=== PATIENT | male | born 1940 | race Caucasian/White ===

== ENCOUNTER 2017-08-12 12:35 | Inpatient (IN) | payer MEDICARE, OTHER ==
[2017-08-12 12:49] VITALS: BP 138/72
[2017-08-12] MEDS ORDERED: Magnesium Hydroxide (MOM) 30 mL UDC PO PRN (17:09)
[2017-08-12] MEDS ORDERED: Maalox 30 mL Cup PO PRN (17:09)
[2017-08-13] MEDS: Multivitamin Tab PO SCH (08:24)
[2017-08-13 10:14] LABS: ALB/GLOB RATIO 1.3 (1.0-1.8); ALKALINE PHOSPHATASE 75 U/L (34-104); ANION GAP 7.3 (7.0-16.0); BILIRUBIN,TOTAL 0.4 mg/dL (0.3-1.0); BUN - UREA NITROGEN 23 mg/dL (7-25); CALCIUM SERUM 9.3 mg/dL (8.6-10.3); CARBON DIOXIDE 26.7 mEq/L (21.0-31.0); CHLORIDE 105 mEq/L (98-107); CREATININE - SERUM 1.1 mg/dL (0.7-1.3); GLUCOSE 78 mg/dL (70-105); SGOT 17 U/L (13-39); SGPT/ALT 12 U/L (7-52); SODIUM SERUM 135 mEq/L (136-145)
--- NOTE | 2017-08-13 10:47 | History & Physical ---
ADMIT DATE: PATIENT IDENTIFICATION: A 76-year-old male. REQUESTING PHYSICIAN: Dr. Cara Hernandez. REASON: Medical management. CHIEF COMPLAINT: "I am fine sir." HISTORY OF PRESENT ILLNESS: A 76-year-old male admitted at [facility] for psychiatric treatment. When he presented initially to [facility] for disorganized thought and he was placed on hold. The patient is overall a poor historian and could not provide any meaningful history. History is obtained from reviewing the chart from [facility]. PAST MEDICAL HISTORY: Remarkable for melanoma removal on his right forearm along with hernia repair and osteoarthritis. MEDICATIONS: Currently, he is taking, which has been reviewed and reconciled appropriately. ALLERGIES: The patient is not allergic to medication. SOCIAL HISTORY: According to him, he is not from [place]. On reviewing the chart, he lives in a [facility]. The patient has a remote history of marijuana use, but denies any smoking cigarette or using alcohol. FAMILY MEDICAL HISTORY: Unremarkable. REVIEW OF SYSTEMS: The patient denies any headache, blurred vision, double vision, dysphagia, odynophagia, runny nose, stuffy nose, fever, chills, cough, chest pain, shortness of breath, palpitation, dizziness, nausea, vomiting, diarrhea, dysuria, hematuria, hematochezia, or melena. No history of any seizure or syncopal episode. No weight loss or weight gain. No history of tingling, numbness. PHYSICAL EXAMINATION: GENERAL: The patient is alert, awake, and oriented, lying in the bed. VITAL SIGNS: Temperature 98, pulse is 64, respiratory rate 18, and blood pressure 132/70. HEENT: Normocephalic and atraumatic. Extraocular muscles are intact. Tongue was pink and coated. Poor dentition noted. No oral lesion, no exudate. No sinus tenderness. External auditory canal and tympanic membranes are well visualized. NECK: Supple. No JVD. No hepatojugular reflex. No lymphadenopathy, thyromegaly, or carotid bruit. HEART: Both heart sounds are regular. No S3, no S4, no murmur. CHEST AND LUNGS: Equal in expansion. No wheezing, no crackles. ABDOMEN: Soft. No guarding, no rigidity. Liver and spleen palpable. No palpable mass. EXTREMITIES: No edema, no cyanosis. There is a well healed surgical scar for removal of melanoma on right forearm noted. NEUROLOGIC: Alert and awake. Follows commands. A 2-12 cranial nerves are intact. Power in upper and lower extremities 5+. Sensation to touch intact. Babinski's in both toes are going down. No cerebellar sign. RECTAL: External genital examination not done as the patient request. AVAILABLE DIAGNOSTIC DATA: White count of 8.53, hemoglobin 13.6, and platelet count of 218. Urinalysis is negative. Urine drug screen is unremarkable. Chemistry panels are within normal limit, which include AST, ALT is 18 and 15 respectively. Sodium 142, potassium 4.0, chloride 104, CO2 25, BUN and creatinine 27 and 1.1. Magnesium of 0.9. Depakote level was reported 14. CLINICAL IMPRESSION: 1. Most likely psychotic disorder exacerbation. 2. Most likely underlying dementia, most probably Alzheimer's type. 3. Degenerative joint disease. 4. History of melanoma, status post resection. 5. Social issues, needs placement. PLAN: 1. Psychiatric evaluation and management deferred to psychiatrist. 2. Dementia workup. 3. Provide general nursing care, fall precautions, nutritional support as well as we will continue to follow this patient during his stay at the hospital. I sincerely thank you, Dr. Cara Hernandez for giving me opportunity to participate in patient of yours. [facility]# [id number]
--- NOTE | 2017-08-13 11:06 | Psychosocial Evaluation ---
DATE OF SERVICE: PSYCHIATRIC INITIAL EVALUATION AND MENTAL STATUS EXAM PATIENT'S AGE: 76. SEX: Male. PHYSICIAN: Cara Hernandez M.D., M.P.H. CHIEF COMPLAINT: "They dragged me here." HISTORY OF PRESENT ILLNESS: The patient is a 76-year-old male who was placed on a 5150 hold written by [facility]. Apparently, the patient has been confused and has been forgetful and he is homeless, in [facility]. Chart reviewed and patient interviewed and discussed the patient's condition with the staff and reviewed records and labs. "I am 55 years old" while the patient is a 76-year-old, also did not know where he lives or how he will buy food or where he gets his money. According to the hold it seems that the patient was living in his car, but also he has not been able to handle food or detention on his own. He also was confused and he was not able to tell me much about himself or about last time he ate or what happened prior to his admission. 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 He did not remember exactly when did he retire and it looks like dates are not clear to him and forgetful in regard to the dates. Also said that he is single, never and that he has no children. The patient seemed that he was agitated in the Emergency Department in [facility]. PAST PSYCHIATRIC HISTORY: The patient cannot tell. PAST MEDICAL HISTORY: The patient has hernia that looks like inguinal hernia. The patient also has history of skin cancer in the right forearm that was removed and the graft is visible. FAMILY PSYCHIATRIC HISTORY: The patient denies. CHEMICAL DEPENDENCY HISTORY: The patient denies. SOCIAL HISTORY: The patient is currently homeless. He is retired. He denies any legal issues or abuse issues. He has never and no children and no family that he can identify. ALLERGIES: No known allergies. MENTAL STATUS EXAMINATION: The patient appears his stated age. Cooperative. Thought processes are circumstantial, but no flight of ideas. The patient denies any auditory or visual hallucinations, but seems to be paranoid and delusional. The patient denies any thoughts of suicide or homicide. The patient is alert and oriented to the situation, but not to date or person or place. Intact remote memory but impaired immediate and recent memories. Poor insight and he does not know what is wrong with him. Poor judgment and he was living in the streets and was not able to supply any safe environment for himself. He seems to be of average intelligence based on his verbal ability. ASSESSMENT: PRIMARY DIAGNOSIS: Unspecified psychosis. SECONDARY DIAGNOSIS: Dementia, moderate to severe, with psychotic features. MEDICAL DIAGNOSIS: Hernia. TREATMENT PLAN: We will monitor the patient's behavior and condition closely. The patient started on Risperdal and we will monitor the dose. Also we will work on safe discharge plans. ESTIMATED LENGTH OF STAY: 5-7 days. THE PATIENT'S STRENGTHS AND WEAKNESSES: The patient's strength is not clear at this time. Weakness is ineffective coping and inability to care for self. AFTER DISCHARGE PLAN: Outpatient treatment and followup will continue as an outpatient. CRITERIA FOR DISCHARGE: The patient will not be psychotic or agitated and will stabilize psychotropic medications and will establish outpatient treatment plans. [facility]# [id number]
--- NOTE | 2017-08-14 06:40 | Progress Notes ---
DATE: SUBJECTIVE: Chart reviewed and the patient interviewed. I also discussed the patient's condition with the staff and reviewed records and labs. The patient is still agitated and restless. The patient also is confused and forgetful. The patient also insists when talking to staff that his parents are alive and that he wants to call his parents. The patient also is still restless and is still actively talking to himself. Otherwise, the patient is compliant with taking his medications with no side effects of Risperdal. ASSESSMENT: The patient is still confused and is still agitated. TREATMENT PLAN: We will continue to monitor his behavior and his condition closely. Also, continue to work on his irritability and his impulse control and we will continue to follow up. JOB# [id number]
[2017-08-14] MEDS: Multivitamin Tab PO SCH (09:54)
[2017-08-14 14:16] LABS: RA RHEUMATOID FACTOR <10.0 IU/mL (0.0-13.9)
[2017-08-15] MEDS: Multivitamin Tab PO SCH (09:01)
[2017-08-15 16:18] LABS: ANTI-NUCLEAR AB SCREEN Negative
--- NOTE | 2017-08-16 02:32 | Progress Notes ---
DATE: Chart reviewed and the patient interviewed. Also discussed the patient's condition with the staff and reviewed records and labs. The patient is confused. The patient also is talking about his parents and he also continued to talk about his art and thinking that he has art inside the hospital. Also, has been disorganized and forgetful. The patient also complaining of insomnia. The patient also was saying that he has "water ski" that is somewhere close by the hospital. Otherwise, the patient is compliant with taking Risperdal with no side effects. ASSESSMENT: The patient is still psychotic. TREATMENT PLAN: Continue to monitor his behavior and his condition closely and continue to work on behavioral modification and also on discharge plans and placement issue. JOB# [id number]
[2017-08-16] MEDS: Multivitamin Tab PO SCH (09:09)
--- NOTE | 2017-08-16 21:06 | Progress Notes ---
DATE: 08/16/2017 SUBJECTIVE: Chart reviewed and the patient interviewed. Also discussed the patient's condition with the staff and reviewed records and labs. The patient continued to be confused and delusional. The patient continued to talk about his family in a confused state and thinks that there are still alive and want to call them. The patient also is still suspicious and paranoid and has episodes of anger and irritability. Otherwise, the patient is compliant with taking his medications with no side effect of medications. ASSESSMENT: The patient is still psychotic. TREATMENT PLAN: Continue to monitor his behavior and his condition closely. Also, we will increase Risperdal to 1 mg twice a day and we will continue to follow up. [facility]# [id number]
[2017-08-17] MEDS: Multivitamin Tab PO SCH (08:25)
--- NOTE | 2017-08-17 13:21 | Progress Notes ---
DATE: 08/17/2017 SUBJECTIVE: The patient seen and examined. The patient sitting in the chair. The patient remained pleasantly demented. Denies any chest pain, short of breath, palpitation, dizziness, nausea, vomiting. PHYSICAL EXAMINATION: VITAL SIGNS: Temperature 98, pulse is 64, respiratory rate 18, blood pressure 134/78. HEENT: No facial asymmetry. NECK: Supple, no JVD. HEART: Regular, no murmur. CHEST: Lung equal in expansion. No wheezing, no crackles. ABDOMEN: Soft. No guarding, no rigidity. EXTREMITIES: No edema. NEUROLOGIC: Alert, awake, follows commands. CLINICAL IMPRESSION: 1. Psychotic disorder exacerbation. 2. Most likely Alzheimer's type dementia. 3. Degenerative joint disease. 4. Needs placement. Lab performed in 08/13/2017 has been reviewed. IMPRESSION: 1. Psychotic disorder exacerbation. 2. Alzheimer dementia. PLAN: Continue current medication as patient receiving for his symptoms management and psychotic disorder. We will follow this patient during the stay on as needed basis. JOB# [id number]
[2017-08-18] MEDS: Multivitamin Tab PO SCH (10:11)
--- NOTE | 2017-08-18 19:36 | Progress Notes ---
DATE: 08/17/2017 SUBJECTIVE: The patient was seen and evaluated. The patient's chart reviewed. This is Dr. Lyons covering for Dr. Hernandez. He is a 76-year-old male, who was placed on 5150 by [facility]. The patient has been disorganized, confused, ____, he is homeless, in [place]; reporting that he was 55 years old when he first came in and not much information was given, he was clearly disorganized. As early as yesterday, the patient continued to be disorganized, delusional, talking about his family in a confused state, not giving much information. Today, on [id number] evaluation, the patient is disorganized, easily derails, cannot give much information, coherent conversation and refusing to be interviewed in a coherent manner. MENTAL STATUS EXAMINATION: Disorganized, delusional. ASSESSMENT AND PLAN: The patient continues to be disorganized. We will continue with the recent increase of risperidone 1 mg p.o. b.i.d. to target the patient residual disorganized thought process and also continue with his lorazepam as needed, MOM, multivitamins, and Ambien as needed. JOB# [id number]
--- NOTE | 2017-08-19 09:12 | Progress Notes ---
DATE: 08/18/2017 SUBJECTIVE: The patient was seen and evaluated. The patient's chart reviewed. This is Dr. Lyons covering for Dr. Hernandez. Today on [id number] evaluation, the patient believes that he is entitled to a big inheritance and believes that his family is , but does not give much information beyond that. MENTAL STATUS EXAMINATION: Still suspicious, paranoid. ASSESSMENT AND PLAN: The patient continues to perseverate about receiving inheritance. Recent increase of risperidone has been tolerated. We will continue with the current medication regimen and continue monitoring further need for increasing risperidone. JOB# [id number]
[2017-08-19] MEDS: Multivitamin Tab PO SCH (09:22)
--- NOTE | 2017-08-19 17:46 | Progress Notes ---
DATE: 08/19/2017 SUBJECTIVE: The patient is seen and examined in the Geropsych Unit. The patient sitting in the chair, does not provide any meaningful history at this time. Discussed with nursing staff about his overall progress. PHYSICAL EXAMINATION: VITAL SIGNS: Temperature is 98.4, pulse is 94, respiratory 18, blood pressure 137/82. HEENT: No facial asymmetry. NECK: Supple, no JVD, no lymphadenopathy, thyromegaly. HEART: Both heart sounds are regular. CHEST: Lung equal in expansion, no wheezing, no crackles. ABDOMEN: Soft, no guarding, no rigidity. Liver, spleen not palpable mass. EXTREMITIES: No edema. CLINICAL IMPRESSION: 1. Alzheimer dementia. 2. Degenerative joint disease. 3. Psychotic disorder exacerbation. 4. Fall risk. PLAN: 1. Psychiatric evaluation and management deferred to psychiatrist. 2. Symptoms management. 3. Medication management. 4. General nursing care. 5. Fall precaution. 6. Follow lab. 7. We will follow this patient on an as needed basis. JOB# [id number]
--- NOTE | 2017-08-19 20:53 | Progress Notes ---
DATE: 08/19/[address] Hernandez. Case was discussed with staff of the patient and reviewed records. This is a 76-year-old male who was admitted on 08/12/2017. The patient reports that they dragged him here. He was put on a hold by [facility]. The patient has been confused, has been forgetful, homeless in [facility]. The patient believed he was 55 years of age, unable to tell his age. The patient does not know where he is. He was living in his car. 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 He is demented, confused. The patient has been in a way calmer. The patient needs to be placed in a safe environment. Dr. Hernandez have him on Risperdal that was increased on 08/16/2017 to 1 mg twice a day. The staff reports, he is in general calming, responding well to redirection, working on placement. No side effects with the medication. No sedation, no nausea, no extrapyramidal symptoms. We will continue outpatient group therapy, milieu therapy, adjust medications as needed. JOB# [id number]
[2017-08-20] MEDS: Multivitamin Tab PO SCH (09:43)
[2017-08-21] MEDS: Multivitamin Tab PO SCH (08:50)
--- NOTE | 2017-08-21 22:02 | Progress Notes ---
DATE: PSYCHIATRIC PROGRESS NOTE Chart reviewed and the patient interviewed. Also discussed the patient's condition with the staff and reviewed records and labs. The patient continued to be restless and is still confused. The patient also still has episodes of agitation, but less than before. Also slightly easier to redirect him. He is still delusional when talking about his family. Also, the patient is still unkempt and personal hygiene is still fluctuating from fair to poor. The patient continued to take his psychotropic medications with no side effects of medications. ASSESSMENT: The patient is still confused and psychotic, but less agitated. TREATMENT PLAN: Continue to monitor his behavior and his condition closely. Also, continue to work on discharge plans and discussed with mattress spring encaser possibility of placing the patient on [facility] and will continue to follow up. JOB# [id number]
[2017-08-22] MEDS: Multivitamin Tab PO SCH (08:03)
[2017-08-23] MEDS: Multivitamin Tab PO SCH (09:03)
[2017-08-24] MEDS: Multivitamin Tab PO SCH (09:21)
--- NOTE | 2017-08-24 23:47 | Progress Notes ---
DATE: 08/24/2017 SUBJECTIVE: A 76-year-old male placed on a hold from an Emergency Room. He has been confused, forgetful, noted to be homeless. The patient was confused, disoriented, did not know how he was going to fend for himself or provide for basic food, clothing, and correction. Dr. Hernandez has been seeing the patient over the past few days noting that he continued to be restless, confused, disoriented, still agitated fluctuations and hygiene. Sleeping fairly well, eating fairly well with prompting. ASSESSMENT: The patient remains confused, still somewhat disoriented, highly impulsive and unpredictable, concerns for his ability to care for his basic needs. PLAN: We will continue to monitor and follow up. Medications were noted. We will continue to make appropriate medication. [facility]# [id number]
[2017-08-25] MEDS: Multivitamin Tab PO SCH (08:21)
--- NOTE | 2017-08-25 16:37 | Progress Notes ---
DATE: 08/22/2017 SUBJECTIVE: Chart reviewed and the patient interviewed. Also discussed the patient's condition with the staff and reviewed records and labs. The patient continued to be confused and forgetful. The patient also is still thinking that there are people in his room and he thinks that there are bugs in his bed. Also, is paranoid and the patient was afraid to go to his room because of thinking his bed is invested with bugs. Otherwise, the patient continued to comply with taking his medications, with no side effect of medications. ASSESSMENT: The patient is still psychotic. TREATMENT PLAN: We will continue monitoring his behavior and his condition closely. Also, increase Risperdal to 2 mg twice a day and we will continue to follow up closely. JOB# [id number]
--- NOTE | 2017-08-25 17:03 | Progress Notes ---
DATE: 08/25/2017 SUBJECTIVE: The patient placed on a hold in the Emergency Room confused, forgetful noted to be homeless. On [id number], the patient states he does know where he is going to go. He is mostly fixated on his throat. He has a cough, wants to mainly talk about the cough. The patient remains somewhat disoriented, unable to verbalize a plan for self-care. Sleeping fairly well, eating fairly well. ASSESSMENT: The patient remains confused, disoriented, somewhat impulsive and concerns for grave disability. PLAN: We will continue to monitor. Continue Risperdal to address any underlying psychotic symptoms. The patient is appearing somewhat internally preoccupied, but less so somewhat calmer. JOB# [id number]
--- NOTE | 2017-08-25 20:46 | Progress Notes ---
DATE: 08/25/2017 SUBJECTIVE: Chart reviewed and the patient interviewed. Also discussed the patient's condition with the staff and reviewed records and labs. The patient still has episodes of irritability and anger. The patient also is still easily agitated and irritable. He also still needs redirections. The patient also is uncooperative. Otherwise, the patient is compliant with taking his medications with no side effects of medications. He is still talking about bugs into his bed and people in his room. ASSESSMENT: The patient is still psychotic, but compliant with taking his medications. TREATMENT PLAN: I increased his Risperdal yesterday to 2 mg twice a day. We will continue same dose and will continue to follow up closely. [facility]# [id number]
[2017-08-26] MEDS: Multivitamin Tab PO SCH (09:02)
== END 2017-08-26 11:15 | DRG 885 ==
LOC: GERO 12:35
PROVIDERS: ADMIT Psychiatry & Neurology Psychiatry; ATTEND Psychiatry & Neurology Psychiatry
DX: F29 Unspecified psychosis not due to a substance or known physiological condition (principal); F02.81 Dementia in other diseases classified elsewhere, unspecified severity, with behavioral disturbance; G30.9 Alzheimer's disease, unspecified; M19.90 Unspecified osteoarthritis, unspecified site; Z85.820 Personal history of malignant melanoma of skin; Z59.0 Homelessness; Z91.81 History of falling
CPT/HCPCS: 36415-UA; 80053-TC; 82550-TC; 82607-90; 82746-90; 84443-TC; 85652-TC; 86038-90; 86430-90; 86592-TC; 90899; G0410; Z7610

== ENCOUNTER 2017-11-08 20:27 | Inpatient (IN) | payer MEDICARE, OTHER ==
--- NOTE | 2017-11-08 21:49 | ED Physician Chart ---
ED Chief Complaint/HPI - Patient Information Date Seen:: 11/08/17 Time Seen:: 20:30 Chief Complaint:: agitated aggressive History of Present Illness:: 76 yr old male from [place] for psych and agitation needs placement states he has not used in a whiled Allergies:: Allergies Allergy/AdvReac Type Severity Reaction Status Date / Time No Known Allergies Allergy Verified 08/12/17 12:55 Vitals:: Vital Signs - 8 hr 11/08/17 21:01 Temp 97.5 F HR 88 RR 18 BP 125/71 O2 Sat % 96 Historian:: EMS ED Review of Systems - Review of Systems General/Constitutional: No fever, No chills, No weight loss, No weakness, No diaphoresis, No edema, No loss of appetite Skin: No skin lesions, No rash, No bruising Head: No headache, No light-headedness Eyes: No loss of vision, No pain, No diplopia ENT: No earache, No nasal drainage, No sore throat, No tinnitus Neck: No neck pain, No swelling, No thyromegaly, No stiffness, No mass noted Cardio Vascular: No chest pain, No palpitations, No PND, No orthopnea, No edema Pulmonary: No SOB, No cough, No sputum, No wheezing GI: No nausea, No vomiting, No diarrhea, No pain, No melena, No hematochezia, No constipation, No hematemesis G/U: No dysuria, No frequency, No hematuria Musculoskeletal: No bone or joint pain, No back pain, No muscle pain Endocrine: No polyuria, No polydipsia Psychiatric: No prior psych history, No depression, No anxiety, No suicidal ideation Hematopoietic: No bruising, No lymphadenopathy Allergic/Immuno: No urticaria, No angioedema Neurological: No syncope, No focal symptoms, No weakness, No paresthesia, No headache, No seizure, No dizziness, No confusion, No vertigo ED Past Medical History - Past Medical History Obtainable: Yes Past Medical History: No significant medical hx, Dementia Social History: Non Smoker, No Alcohol ED Septic Shock - . Is Septic Shock (SBP<90, OR Lactate>4 mmol\L) present?: No - <6hrs of presentation: Vital Signs: Vital Signs - 8 hr 11/08/17 21:01 Temp 97.5 F HR 88 RR 18 BP 125/71 O2 Sat % 96
[2017-11-08 22:18] LABS: % BASOPHILS 0.4 % (0.0-2.0); % LYMPHOCYTES 20.7 % (20.0-50.0); % MONOCYTES 7.9 % (2.0-10.0); EOSINOPHILE ABSOLUTE 0.1 Th/cmm (0.1-0.4); HEMATOCRIT 42.1 % (41.0-60); HEMOGLOBIN 14.1 gm/dL (12-16); LYMPHOCYTE ABSOLUTE 1.7 Th/cmm (1.5-3.0); MEAN CELL VOLUME 89.2 fl (80-99); MEAN CORPUSCULAR HEMOGLOBIN 29.8 pg (27.0-31.0); MEAN CORPUSCULAR HGB CONC 33.4 pg (28.0-36.0); MEAN PLATELET VOLUME 7.6 fl; MONOCYTE ABSOLUTE 0.7 Th/cmm (0.3-1.0); NEUTROPHILE ABSOLUTE 5.9 Th/cmm (1.8-8.0); PLATELET COUNT 287 Th/cmm (150-400); RED BLOOD COUNT 4.73 Mil/cmm (3.80-5.80); RED CELL DISTRIBUTION WIDTH 12.3 % (11.5-20.0); WHITE BLOOD COUNT 8.4 Th/cmm (4.8-10.8)
[2017-11-08 22:35] LABS: ALB/GLOB RATIO 1.4 (1.0-1.8); ALBUMIN 4.4 gm/dL (4.2-5.5); ALKALINE PHOSPHATASE 68 U/L (34-104); ANION GAP 15.1 (7.0-16.0); BILIRUBIN,TOTAL 0.7 mg/dL (0.3-1.0); BUN - UREA NITROGEN 29 mg/dL (7-25); CALCIUM SERUM 9.5 mg/dL (8.6-10.3); CARBON DIOXIDE 24.4 mEq/L (21.0-31.0); CHLORIDE 104 mEq/L (98-107); CREATININE - SERUM 1.3 mg/dL (0.7-1.3); GLUCOSE 122 mg/dL (70-105); POTASSIUM SERUM 3.5 mEq/L (3.5-5.1); SGOT 60 U/L (13-39); SGPT/ALT 40 U/L (7-52); SODIUM SERUM 140 mEq/L (136-145); TOTAL PROTEIN,SERUM 7.5 gm/dL (6.0-8.3)
[2017-11-09 00:26] VITALS: BP 125/69
[2017-11-09] MEDS ORDERED: Magnesium Hydroxide (MOM) 30 mL UDC PO PRN (01:20)
--- NOTE | 2017-11-09 09:12 | Diagnostic Imaging Report ---
Portable chest x-ray History: Shortness of breath Allowing for portable technique the heart size is normal. No focal pulmonary parenchymal processes. No hilar or mediastinal abnormalities. Scoliosis of the thoracic spine convexity to right. This may be positional. Impression: No acute abnormalities.
[2017-11-09] MEDS: Calcium Carb/Vit D 500 mg/200 U Tab PO SCH (10:20)
[2017-11-09] MEDS: Multivitamin Tab PO SCH (10:21)
--- NOTE | 2017-11-09 10:40 | History & Physical ---
ADMIT DATE: 11/09/2017 CHIEF COMPLAINT: Increased agitation. HISTORY OF PRESENT ILLNESS: This is a 76-year-old male who was admitted from intermediate facility that was sent to the Emergency Room with increased agitation. REVIEW OF SYSTEMS: GENERAL: This is a 76-year-old male that appears as stated, no fever, no chills, no weakness. HEENT: No headache. No dizziness. EYES: No eye pain, no blurring of vision. NECK: No neck pain, no nuchal rigidity. CHEST: No chest pain. No palpitation. PULMONARY: No shortness of breath, no coughing. GASTROINTESTINAL: No abdominal pain, no constipation, no diarrhea. MUSCULOSKELETAL: No joint pain. No muscle pain. SOCIAL HISTORY: The patient lives in a intermediate facility prior to hospitalization. FAMILY HISTORY: Unremarkable. SURGICAL HISTORY: Unremarkable. PSYCHIATRIC HISTORY: Includes questionable dementia. PAST MEDICAL HISTORY: Includes osteoarthritis. PHYSICAL EXAMINATION: VITAL SIGNS: Temperature 98.5, heart rate 96, blood pressure 113/59, respirations 20, 96% on room air. HEENT: Head is atraumatic, normocephalic. Eyes, bilateral conjunctivae are clear. Bilateral pupils are equally round and reactive. NECK: Supple. No JVD. CARDIOVASCULAR: S1 and S2, without murmur. PULMONARY: Clear to auscultation. GASTROINTESTINAL: Soft and nontender without guarding. Positive bowel sounds. MUSCULOSKELETAL: No clubbing. No cyanosis noted. ASSESSMENT: 1. Psychosis. 2. Rule out dementia. 3. Osteoarthritis. PLAN: We will admit the patient to senior mental health unit. We will follow up with a psychiatrist to monitor the patient's condition and behavior. We do medication reconciliation accordingly. Treatment plans were discussed with the patient's nurse. Treatment plans were discussed with Dr. Can. JOB# [id number]
--- NOTE | 2017-11-09 23:21 | Psychosocial Evaluation ---
DATE OF SERVICE: 11/08/2017 PSYCHIATRIC INITIAL EVALUATION AND MENTAL STATUS EXAM PATIENT'S AGE: 76-year-old. SEX: Male. PHYSICIAN: Cara Hernandez MD, MPH CHIEF COMPLAINT: Agitation and aggressive behavior. HISTORY OF PRESENT ILLNESS: The patient is a 76-year-old male who was transferred from [facility] because of increased agitation. The patient has been wandering around the facility and has not been able to follow directions. Also, gets aggressive with the staff. The patient also has been having difficulty with his mood and has been easily agitated. He also has been not able to follow directions and confused. The patient is still confused and agitated. The patient also is still restless. Difficulty with his mood. PAST PSYCHIATRIC HISTORY: The patient has a history of what seems to be agitation and psychosis. PAST MEDICAL HISTORY: The patient has no major medical problems. SOCIAL HISTORY: The patient lives in [facility]. No known alcohol or drug use. ALLERGIES: No known allergies. MENTAL STATUS EXAMINATION: The patient appears his stated age. Anxious. Irritable mood. Confused. Disorganized thoughts. The patient denies hallucinations, but seems to be suspicious and paranoid. The patient denies suicide or homicide. The patient is alert, but disoriented to the situation, place and person. Impaired immediate and recent memory, but intact remote memory. Poor insight and poor judgment. ASSESSMENT: PRIMARY DIAGNOSIS: Unspecified psychosis. SECONDARY DIAGNOSIS: Dementia, moderate, with psychotic features. TREATMENT PLAN: We will continue to monitor his behavior and his condition closely. Also, we will start individual as well as milieu psychotherapy. We will adjust psychotropic medications. ESTIMATED LENGTH OF STAY: 5-7 days. THE PATIENT'S STRENGTHS AND WEAKNESSES: The patient's strength is not clear at this time. Weaknesses is ineffective coping and poor impulse control. AFTER DISCHARGE PLAN: Outpatient treatment on followup and the patient can return to [facility] and follow up his treatment there. [facility]# [id number]
--- NOTE | 2017-11-10 07:05 | General Progress Note ---
Subjective - Review of Systems Events since last encounter: patient is irritable in no distress Objective - Results Result Diagrams: 11/08/17 22:09 11/08/17 22:09 Recent Labs: Laboratory Last Values WBC 8.4 Th/cmm (4.8-10.8) 11/08/17 22:09 RBC 4.73 Mil/cmm (3.80-5.80) 11/08/17 22:09 Hgb 14.1 gm/dL (12-16) 11/08/17 22:09 Hct 42.1 % (41.0-60) 11/08/17 22:09 MCV 89.2 fl (80-99) 11/08/17 22:09 MCH 29.8 pg (27.0-31.0) 11/08/17 22:09 MCHC Differential 33.4 pg (28.0-36.0) 11/08/17 22:09 RDW 12.3 % (11.5-20.0) 11/08/17 22:09 Plt Count 287 Th/cmm (150-400) 11/08/17 22:09 MPV 7.6 fl 11/08/17 22:09 Neutrophils % 70.0 % (40.0-80.0) 11/08/17 22:09 Lymphocytes % 20.7 % (20.0-50.0) 11/08/17 22:09 Monocytes % 7.9 % (2.0-10.0) 11/08/17 22:09 Eosinophils % 1.0 % (0.0-5.0) 11/08/17 22:09 Basophils % 0.4 % (0.0-2.0) 11/08/17 22:09 Sodium 140 mEq/L (136-145) 11/08/17 22:09 Potassium 3.5 mEq/L (3.5-5.1) 11/08/17 22:09 Chloride 104 mEq/L (98-107) 11/08/17 22:09 Carbon Dioxide 24.4 mEq/L (21.0-31.0) 11/08/17 22:09 Anion Gap 15.1 (7.0-16.0) 11/08/17 22:09 BUN 29 mg/dL (7-25) H 11/08/17 22:09 Creatinine 1.3 mg/dL (0.7-1.3) 11/08/17 22:09 Est GFR ( Amer) TNP 11/08/17 22:09 Est GFR (Non-Af Amer) TNP 11/08/17 22:09 BUN/Creatinine Ratio 22.3 11/08/17 22:09 Glucose 122 mg/dL (70-105) H 11/08/17 22:09 Calcium 9.5 mg/dL (8.6-10.3) 11/08/17 22:09 Total Bilirubin 0.7 mg/dL (0.3-1.0) 11/08/17 22:09 AST 60 U/L (13-39) H 11/08/17 22:09 ALT 40 U/L (7-52) 11/08/17 22:09 Alkaline Phosphatase 68 U/L (34-104) 11/08/17 22:09 Total Protein 7.5 gm/dL (6.0-8.3) 11/08/17 22:09 Albumin 4.4 gm/dL (4.2-5.5) 11/08/17 22:09 Globulin 3.1 gm/dL 11/08/17 22:09 Albumin/Globulin Ratio 1.4 (1.0-1.8) 11/08/17 22:09 - Physical Exam Vitals and I&O: Vital Signs Temp 97.5 F 11/10/17 05:57 Pulse 54 11/10/17 05:57 Resp 18 11/10/17 05:57 BP 101/66 11/10/17 05:57 Pulse Ox 97 11/10/17 05:57 Intake & Output 11/09/17 11/10/17 11/10/17 18:59 06:59 18:59 Intake Total 1350 1260 Balance 1350 1260 Intake: Oral 1350 1260 Other: # Voids 3 1 # Bowel Movements 2 Active Medications: Current Medications Acetaminophen (Tylenol) 650 mg PO Q4HR PRN PRN Reason: Mild Pain / Temp above 100 Stop: 01/08/18 01:19 Calcium/Vitamin D (Oscal W/Vitamin D) 1 tab PO DAILY ABHISHEK Stop: 01/08/18 08:59 Last Admin: 11/09/17 10:20 Dose: 1 tab Lorazepam (Ativan) 0.5 mg PO Q6HR PRN; Protocol PRN Reason: Agitation Stop: 01/08/18 05:35 Last Admin: 11/10/17 03:14 Dose: 0.5 mg Magnesium Hydroxide (Milk Of Magnesia) 30 ml PO HS PRN PRN Reason: Constipation Stop: 01/08/18 01:19 Multivitamins/Vitamin C (Theragran) 1 tab PO DAILY ABHISHEK Stop: 01/08/18 08:59 Last Admin: 11/09/17 10:21 Dose: 1 tab Risperidone (Risperdal) 2 mg PO BID ABHISHEK; Protocol Stop: 01/08/18 08:59 Last Admin: 11/09/17 17:20 Dose: 2 mg Senna (Senna) 17.2 mg PO HS ABHISHEK Stop: 01/08/18 20:59 Last Admin: 11/09/17 20:50 Dose: 17.2 mg Zolpidem Tartrate (Ambien) 5 mg PO HS PRN PRN Reason: Insomnia Stop: 01/08/18 05:39 Last Admin: 11/09/17 20:51 Dose: 5 mg
[2017-11-10] MEDS: Multivitamin Tab PO SCH (08:44)
[2017-11-10] MEDS: Calcium Carb/Vit D 500 mg/200 U Tab PO SCH (08:44)
--- NOTE | 2017-11-11 00:10 | Progress Notes ---
DATE: 11/10/2017 SUBJECTIVE: Chart reviewed and the patient interviewed. Also, discussed the patient's condition with the staff and reviewed records and labs. The patient is still easily agitated. The patient also is still in irritable mood. The patient also still needs lots of redirections. Otherwise, the patient is compliant with taking his medications with no side effects of medications. ASSESSMENT: The patient is still agitated and psychotic. TREATMENT PLAN: We will continue to monitor his behavior and his condition closely. Also, continue to work on his poor impulse control and adjusting psychotropic medications. JOB# [id number]
--- NOTE | 2017-11-11 08:46 | General Progress Note ---
Subjective - Review of Systems Events since last encounter: still psychotic agitated Objective - Results Result Diagrams: 11/08/17 22:09 11/08/17 22:09 Recent Labs: Laboratory Last Values WBC 8.4 Th/cmm (4.8-10.8) 11/08/17 22:09 RBC 4.73 Mil/cmm (3.80-5.80) 11/08/17 22:09 Hgb 14.1 gm/dL (12-16) 11/08/17 22:09 Hct 42.1 % (41.0-60) 11/08/17 22:09 MCV 89.2 fl (80-99) 11/08/17 22:09 MCH 29.8 pg (27.0-31.0) 11/08/17 22:09 MCHC Differential 33.4 pg (28.0-36.0) 11/08/17 22:09 RDW 12.3 % (11.5-20.0) 11/08/17 22:09 Plt Count 287 Th/cmm (150-400) 11/08/17 22:09 MPV 7.6 fl 11/08/17 22:09 Neutrophils % 70.0 % (40.0-80.0) 11/08/17 22:09 Lymphocytes % 20.7 % (20.0-50.0) 11/08/17 22:09 Monocytes % 7.9 % (2.0-10.0) 11/08/17 22:09 Eosinophils % 1.0 % (0.0-5.0) 11/08/17 22:09 Basophils % 0.4 % (0.0-2.0) 11/08/17 22:09 Sodium 140 mEq/L (136-145) 11/08/17 22:09 Potassium 3.5 mEq/L (3.5-5.1) 11/08/17 22:09 Chloride 104 mEq/L (98-107) 11/08/17 22:09 Carbon Dioxide 24.4 mEq/L (21.0-31.0) 11/08/17 22:09 Anion Gap 15.1 (7.0-16.0) 11/08/17 22:09 BUN 29 mg/dL (7-25) H 11/08/17 22:09 Creatinine 1.3 mg/dL (0.7-1.3) 11/08/17 22:09 Est GFR ( Amer) TNP 11/08/17 22:09 Est GFR (Non-Af Amer) TNP 11/08/17 22:09 BUN/Creatinine Ratio 22.3 11/08/17 22:09 Glucose 122 mg/dL (70-105) H 11/08/17 22:09 Calcium 9.5 mg/dL (8.6-10.3) 11/08/17 22:09 Total Bilirubin 0.7 mg/dL (0.3-1.0) 11/08/17 22:09 AST 60 U/L (13-39) H 11/08/17 22:09 ALT 40 U/L (7-52) 11/08/17 22:09 Alkaline Phosphatase 68 U/L (34-104) 11/08/17 22:09 Total Protein 7.5 gm/dL (6.0-8.3) 11/08/17 22:09 Albumin 4.4 gm/dL (4.2-5.5) 11/08/17 22:09 Globulin 3.1 gm/dL 11/08/17 22:09 Albumin/Globulin Ratio 1.4 (1.0-1.8) 11/08/17 22:09 - Physical Exam Vitals and I&O: Vital Signs Temp 97.9 F 11/11/17 04:23 Pulse 83 11/11/17 04:23 Resp 18 11/11/17 04:23 BP 115/78 11/11/17 04:23 Pulse Ox 98 11/11/17 04:23 Intake & Output 11/10/17 11/11/17 11/11/17 18:59 06:59 18:59 Intake Total 480 Balance 480 Intake: Oral 480 Other: # Voids 2 Active Medications: Current Medications Acetaminophen (Tylenol) 650 mg PO Q4HR PRN PRN Reason: Mild Pain / Temp above 100 Stop: 01/08/18 01:19 Calcium/Vitamin D (Oscal W/Vitamin D) 1 tab PO DAILY ABHISHEK Stop: 01/08/18 08:59 Last Admin: 11/10/17 08:44 Dose: 1 tab Lorazepam (Ativan) 0.5 mg PO Q6HR PRN; Protocol PRN Reason: Agitation Stop: 01/08/18 05:35 Last Admin: 11/11/17 02:38 Dose: 0.5 mg Magnesium Hydroxide (Milk Of Magnesia) 30 ml PO HS PRN PRN Reason: Constipation Stop: 01/08/18 01:19 Multivitamins/Vitamin C (Theragran) 1 tab PO DAILY ABHISHEK Stop: 01/08/18 08:59 Last Admin: 11/10/17 08:44 Dose: 1 tab Quetiapine Fumarate (Seroquel) 100 mg PO HS ABHISHEK; Protocol Stop: 01/10/18 20:59 Quetiapine Fumarate (Seroquel) 25 mg PO BID ABHISHEK; Protocol Stop: 01/10/18 08:59 Senna (Senna) 17.2 mg PO HS ABHISHEK Stop: 01/08/18 20:59 Last Admin: 11/10/17 20:40 Dose: 17.2 mg Zolpidem Tartrate (Ambien) 5 mg PO HS PRN PRN Reason: Insomnia Stop: 01/08/18 05:39 Last Admin: 11/10/17 20:40 Dose: 5 mg
[2017-11-11] MEDS: Calcium Carb/Vit D 500 mg/200 U Tab PO SCH (09:48)
[2017-11-11] MEDS: Multivitamin Tab PO SCH (09:48)
--- NOTE | 2017-11-12 05:54 | Progress Notes ---
DATE: 11/11/2017 PSYCHIATRIC PROGRESS NOTE Chart reviewed and the patient interviewed. Also discussed the patient's condition with the staff and reviewed records and labs. The patient continued to be confused. The patient also is still wandering all night and entering other patient's rooms and he almost did not sleep last night all night. The patient also is still acting bizarre and peeing while he is sitting on the chair. The patient also is still easily agitated and irritable. Otherwise, the patient is taking his medications with no side effects of medications. ASSESSMENT: The patient is still confused and psychotic. TREATMENT PLAN: We will discontinue Risperdal since it seems to not helping the patient much and we will start Seroquel a dose of 25 mg twice a day and 100 mg at bedtime and we will continue to monitor behavior and follow up closely. JOB# [id number]
[2017-11-12] MEDS: Multivitamin Tab PO SCH (08:12)
[2017-11-12] MEDS: Calcium Carb/Vit D 500 mg/200 U Tab PO SCH (08:12)
--- NOTE | 2017-11-12 22:30 | Progress Notes ---
DATE: Chart reviewed and the patient interviewed. Also discussed the patient's condition with the staff and reviewed records and labs. The patient is still confused and delusional. Also, still has difficulty sleeping at night, although gets slightly better yesterday. The patient also is still unable to provide any information or safe plan for self-care and he does not even know where he is at. The patient also because of his confusion still doing inappropriate things like being while sitting on chair. ASSESSMENT: The patient is still confused, but seems to be less agitated. TREATMENT PLAN: The patient started on Seroquel 25 mg twice a day and 100 mg at bedtime. We will continue same dose. Also, continue monitoring his behavior and work on behavioral modification and adjusting psychotropic medications. JOB# [id number]
[2017-11-13] MEDS: Calcium Carb/Vit D 500 mg/200 U Tab PO SCH (08:50)
[2017-11-13] MEDS: Multivitamin Tab PO SCH (08:51)
--- NOTE | 2017-11-13 16:27 | General Progress Note ---
Subjective - Review of Systems Events since last encounter: patient confused Objective - Results Result Diagrams: 11/08/17 22:09 11/08/17 22:09 Recent Labs: Laboratory Last Values WBC 8.4 Th/cmm (4.8-10.8) 11/08/17 22:09 RBC 4.73 Mil/cmm (3.80-5.80) 11/08/17 22:09 Hgb 14.1 gm/dL (12-16) 11/08/17 22:09 Hct 42.1 % (41.0-60) 11/08/17 22:09 MCV 89.2 fl (80-99) 11/08/17 22:09 MCH 29.8 pg (27.0-31.0) 11/08/17 22:09 MCHC Differential 33.4 pg (28.0-36.0) 11/08/17 22:09 RDW 12.3 % (11.5-20.0) 11/08/17 22:09 Plt Count 287 Th/cmm (150-400) 11/08/17 22:09 MPV 7.6 fl 11/08/17 22:09 Neutrophils % 70.0 % (40.0-80.0) 11/08/17 22:09 Lymphocytes % 20.7 % (20.0-50.0) 11/08/17 22:09 Monocytes % 7.9 % (2.0-10.0) 11/08/17 22:09 Eosinophils % 1.0 % (0.0-5.0) 11/08/17 22:09 Basophils % 0.4 % (0.0-2.0) 11/08/17 22:09 Sodium 140 mEq/L (136-145) 11/08/17 22:09 Potassium 3.5 mEq/L (3.5-5.1) 11/08/17 22:09 Chloride 104 mEq/L (98-107) 11/08/17 22:09 Carbon Dioxide 24.4 mEq/L (21.0-31.0) 11/08/17 22:09 Anion Gap 15.1 (7.0-16.0) 11/08/17 22:09 BUN 29 mg/dL (7-25) H 11/08/17 22:09 Creatinine 1.3 mg/dL (0.7-1.3) 11/08/17 22:09 Est GFR ( Amer) TNP 11/08/17 22:09 Est GFR (Non-Af Amer) TNP 11/08/17 22:09 BUN/Creatinine Ratio 22.3 11/08/17 22:09 Glucose 122 mg/dL (70-105) H 11/08/17 22:09 Calcium 9.5 mg/dL (8.6-10.3) 11/08/17 22:09 Total Bilirubin 0.7 mg/dL (0.3-1.0) 11/08/17 22:09 AST 60 U/L (13-39) H 11/08/17 22:09 ALT 40 U/L (7-52) 11/08/17 22:09 Alkaline Phosphatase 68 U/L (34-104) 11/08/17 22:09 Total Protein 7.5 gm/dL (6.0-8.3) 11/08/17 22:09 Albumin 4.4 gm/dL (4.2-5.5) 11/08/17 22:09 Globulin 3.1 gm/dL 11/08/17 22:09 Albumin/Globulin Ratio 1.4 (1.0-1.8) 11/08/17 22:09 - Physical Exam Vitals and I&O: Vital Signs Temp 98.6 F 11/13/17 14:37 Pulse 88 11/13/17 14:37 Resp 19 11/13/17 14:37 BP 99/60 11/13/17 14:37 Pulse Ox 96 11/13/17 14:37 Intake & Output 11/12/17 11/13/17 11/13/17 18:59 06:59 18:59 Intake Total 1200 Balance 1200 Intake: Oral 1200 Other: # Voids 3 # Bowel Movements 1 Active Medications: Current Medications Acetaminophen (Tylenol) 650 mg PO Q4HR PRN PRN Reason: Mild Pain / Temp above 100 Stop: 01/08/18 01:19 Calcium/Vitamin D (Oscal W/Vitamin D) 1 tab PO DAILY ABHISHEK Stop: 01/08/18 08:59 Last Admin: 11/13/17 08:50 Dose: 1 tab Lorazepam (Ativan) 0.5 mg PO Q6HR PRN; Protocol PRN Reason: Agitation Stop: 01/08/18 05:35 Last Admin: 11/13/17 05:34 Dose: 0.5 mg Magnesium Hydroxide (Milk Of Magnesia) 30 ml PO HS PRN PRN Reason: Constipation Stop: 01/08/18 01:19 Multivitamins/Vitamin C (Theragran) 1 tab PO DAILY ABHISHEK Stop: 01/08/18 08:59 Last Admin: 11/13/17 08:51 Dose: 1 tab Quetiapine Fumarate (Seroquel) 100 mg PO HS ABHISHEK; Protocol Stop: 01/10/18 20:59 Last Admin: 11/12/17 20:47 Dose: 100 mg Quetiapine Fumarate (Seroquel) 25 mg PO BID ABHISHEK; Protocol Stop: 01/10/18 08:59 Last Admin: 11/13/17 16:25 Dose: 25 mg Senna (Senna) 17.2 mg PO HS ABHISHEK Stop: 01/08/18 20:59 Last Admin: 11/12/17 20:47 Dose: 17.2 mg Zolpidem Tartrate (Ambien) 5 mg PO HS PRN PRN Reason: Insomnia Stop: 01/08/18 05:39 Last Admin: 11/10/17 20:40 Dose: 5 mg
--- NOTE | 2017-11-13 20:12 | Progress Notes ---
DATE: 11/13/2017 SUBJECTIVE: Chart reviewed and the patient interviewed. Also, discussed the patient's condition with the staff and reviewed records and labs. The patient continued to be confused. The patient also he is staying in his Latoya chair and acting bizarre at times. Also, is still confused and needs redirections. On the other hand, the patient is sleeping better at night. The patient also seems to be calmer and less agitated since started on Seroquel instead of Risperdal. ASSESSMENT: The patient is still confused. TREATMENT PLAN: Continue monitoring his behavior and his condition closely. Also, continue Risperdal 25 mg twice a day and 100 mg at bedtime. Also, working with caser in in regard to discharge plans and placement issue. JOB# [id number]
[2017-11-14] MEDS: Calcium Carb/Vit D 500 mg/200 U Tab PO SCH (08:35)
[2017-11-14] MEDS: Multivitamin Tab PO SCH (08:35)
--- NOTE | 2017-11-14 11:29 | General Progress Note ---
Subjective - Review of Systems Events since last encounter: no change Objective - Results Result Diagrams: 11/08/17 22:09 11/08/17 22:09 Recent Labs: Laboratory Last Values WBC 8.4 Th/cmm (4.8-10.8) 11/08/17 22:09 RBC 4.73 Mil/cmm (3.80-5.80) 11/08/17 22:09 Hgb 14.1 gm/dL (12-16) 11/08/17 22:09 Hct 42.1 % (41.0-60) 11/08/17 22:09 MCV 89.2 fl (80-99) 11/08/17 22:09 MCH 29.8 pg (27.0-31.0) 11/08/17 22:09 MCHC Differential 33.4 pg (28.0-36.0) 11/08/17 22:09 RDW 12.3 % (11.5-20.0) 11/08/17 22:09 Plt Count 287 Th/cmm (150-400) 11/08/17 22:09 MPV 7.6 fl 11/08/17 22:09 Neutrophils % 70.0 % (40.0-80.0) 11/08/17 22:09 Lymphocytes % 20.7 % (20.0-50.0) 11/08/17 22:09 Monocytes % 7.9 % (2.0-10.0) 11/08/17 22:09 Eosinophils % 1.0 % (0.0-5.0) 11/08/17 22:09 Basophils % 0.4 % (0.0-2.0) 11/08/17 22:09 Sodium 140 mEq/L (136-145) 11/08/17 22:09 Potassium 3.5 mEq/L (3.5-5.1) 11/08/17 22:09 Chloride 104 mEq/L (98-107) 11/08/17 22:09 Carbon Dioxide 24.4 mEq/L (21.0-31.0) 11/08/17 22:09 Anion Gap 15.1 (7.0-16.0) 11/08/17 22:09 BUN 29 mg/dL (7-25) H 11/08/17 22:09 Creatinine 1.3 mg/dL (0.7-1.3) 11/08/17 22:09 Est GFR ( Amer) TNP 11/08/17 22:09 Est GFR (Non-Af Amer) TNP 11/08/17 22:09 BUN/Creatinine Ratio 22.3 11/08/17 22:09 Glucose 122 mg/dL (70-105) H 11/08/17 22:09 Calcium 9.5 mg/dL (8.6-10.3) 11/08/17 22:09 Total Bilirubin 0.7 mg/dL (0.3-1.0) 11/08/17 22:09 AST 60 U/L (13-39) H 11/08/17 22:09 ALT 40 U/L (7-52) 11/08/17 22:09 Alkaline Phosphatase 68 U/L (34-104) 11/08/17 22:09 Total Protein 7.5 gm/dL (6.0-8.3) 11/08/17 22:09 Albumin 4.4 gm/dL (4.2-5.5) 11/08/17 22:09 Globulin 3.1 gm/dL 11/08/17 22:09 Albumin/Globulin Ratio 1.4 (1.0-1.8) 11/08/17 22:09 - Physical Exam Vitals and I&O: Vital Signs Temp 97.8 F 11/14/17 07:01 Pulse 98 11/14/17 07:01 Resp 19 11/14/17 07:01 BP 114/86 11/14/17 07:01 Pulse Ox 99 11/14/17 07:01 Intake & Output 11/13/17 11/14/17 11/14/17 18:59 06:59 18:59 Intake Total 650 540 Balance 650 540 Intake: Oral 650 540 Other: # Voids 1 2 Active Medications: Current Medications Acetaminophen (Tylenol) 650 mg PO Q4HR PRN PRN Reason: Mild Pain / Temp above 100 Stop: 01/08/18 01:19 Calcium/Vitamin D (Oscal W/Vitamin D) 1 tab PO DAILY ABHISHEK Stop: 01/08/18 08:59 Last Admin: 11/14/17 08:35 Dose: 1 tab Lorazepam (Ativan) 0.5 mg PO Q6HR PRN; Protocol PRN Reason: Agitation Stop: 01/08/18 05:35 Last Admin: 11/13/17 05:34 Dose: 0.5 mg Magnesium Hydroxide (Milk Of Magnesia) 30 ml PO HS PRN PRN Reason: Constipation Stop: 01/08/18 01:19 Multivitamins/Vitamin C (Theragran) 1 tab PO DAILY ABHISHEK Stop: 01/08/18 08:59 Last Admin: 11/14/17 08:35 Dose: 1 tab Quetiapine Fumarate (Seroquel) 100 mg PO HS ABHISHEK; Protocol Stop: 01/10/18 20:59 Last Admin: 11/13/17 21:03 Dose: 100 mg Quetiapine Fumarate (Seroquel) 25 mg PO BID ABHISHEK; Protocol Stop: 01/10/18 08:59 Last Admin: 11/14/17 08:35 Dose: 25 mg Senna (Senna) 17.2 mg PO HS ABHISHEK Stop: 01/08/18 20:59 Last Admin: 11/13/17 21:03 Dose: 17.2 mg Zolpidem Tartrate (Ambien) 5 mg PO HS PRN PRN Reason: Insomnia Stop: 01/08/18 05:39 Last Admin: 11/13/17 21:03 Dose: 5 mg
--- NOTE | 2017-11-14 23:37 | Progress Notes ---
DATE: 11/14/2017 SUBJECTIVE: Chart reviewed and the patient interviewed. Also discussed the patient's condition with the staff and reviewed records and labs. The patient is still confused and is still wandering around in the unit in a depressed mood. The patient also is having labile affect. The patient also still mumbles and is still kept on the wheelchair most of the time. The patient also is still unable to provide any safe plan for self-care. Otherwise, the patient is compliant with taking Seroquel with no side effect of Seroquel. The patient also has slept slightly better with changing to the Seroquel. Otherwise, the patient still needs close monitoring. ASSESSMENT: The patient is still confused and needs close monitoring. TREATMENT PLAN: Continue monitoring his behavior and his condition closely. Also, continue to work on behavioral modification and discharge plans. JOB# [id number]
[2017-11-15] MEDS: Multivitamin Tab PO SCH (09:01)
[2017-11-15] MEDS: Calcium Carb/Vit D 500 mg/200 U Tab PO SCH (09:01)
--- NOTE | 2017-11-15 16:00 | Internal Medicine Prog Note ---
Internal Medicine Subjective - Subjective Service Date: 11/15/17 Patient seen and examined:: with staff Patient is:: awake Per staff patient has:: tolerating meds Internal Medicine Objective - Results Result Diagrams: 11/08/17 22:09 11/08/17 22:09 Recent Labs: Laboratory Last Values WBC 8.4 Th/cmm (4.8-10.8) 11/08/17 22:09 RBC 4.73 Mil/cmm (3.80-5.80) 11/08/17 22:09 Hgb 14.1 gm/dL (12-16) 11/08/17 22:09 Hct 42.1 % (41.0-60) 11/08/17 22:09 MCV 89.2 fl (80-99) 11/08/17 22:09 MCH 29.8 pg (27.0-31.0) 11/08/17 22:09 MCHC Differential 33.4 pg (28.0-36.0) 11/08/17 22:09 RDW 12.3 % (11.5-20.0) 11/08/17 22:09 Plt Count 287 Th/cmm (150-400) 11/08/17 22:09 MPV 7.6 fl 11/08/17 22:09 Neutrophils % 70.0 % (40.0-80.0) 11/08/17 22:09 Lymphocytes % 20.7 % (20.0-50.0) 11/08/17 22:09 Monocytes % 7.9 % (2.0-10.0) 11/08/17 22:09 Eosinophils % 1.0 % (0.0-5.0) 11/08/17 22:09 Basophils % 0.4 % (0.0-2.0) 11/08/17 22:09 Sodium 140 mEq/L (136-145) 11/08/17 22:09 Potassium 3.5 mEq/L (3.5-5.1) 11/08/17 22:09 Chloride 104 mEq/L (98-107) 11/08/17 22:09 Carbon Dioxide 24.4 mEq/L (21.0-31.0) 11/08/17 22:09 Anion Gap 15.1 (7.0-16.0) 11/08/17 22:09 BUN 29 mg/dL (7-25) H 11/08/17 22:09 Creatinine 1.3 mg/dL (0.7-1.3) 11/08/17 22:09 Est GFR ( Amer) TNP 11/08/17 22:09 Est GFR (Non-Af Amer) TNP 11/08/17 22:09 BUN/Creatinine Ratio 22.3 11/08/17 22:09 Glucose 122 mg/dL (70-105) H 11/08/17 22:09 Calcium 9.5 mg/dL (8.6-10.3) 11/08/17 22:09 Total Bilirubin 0.7 mg/dL (0.3-1.0) 11/08/17 22:09 AST 60 U/L (13-39) H 11/08/17 22:09 ALT 40 U/L (7-52) 11/08/17 22:09 Alkaline Phosphatase 68 U/L (34-104) 11/08/17 22:09 Total Protein 7.5 gm/dL (6.0-8.3) 11/08/17 22:09 Albumin 4.4 gm/dL (4.2-5.5) 11/08/17 22:09 Globulin 3.1 gm/dL 11/08/17 22:09 Albumin/Globulin Ratio 1.4 (1.0-1.8) 11/08/17 22:09 - Physical Exam Vitals and I&O: Vital Signs Temp 97.9 F 11/15/17 14:00 Pulse 87 11/15/17 14:00 Resp 18 11/15/17 14:00 BP 120/83 11/15/17 14:00 Pulse Ox 98 11/15/17 14:00 Intake & Output 11/14/17 11/15/17 11/15/17 18:59 06:59 18:59 Intake Total 540 480 Balance 540 480 Intake: Oral 540 480 Other: # Voids 2 2 Active Medications: Current Medications Acetaminophen (Tylenol) 650 mg PO Q4HR PRN PRN Reason: Mild Pain / Temp above 100 Stop: 01/08/18 01:19 Calcium/Vitamin D (Oscal W/Vitamin D) 1 tab PO DAILY ABHISHEK Stop: 01/08/18 08:59 Last Admin: 11/15/17 09:01 Dose: 1 tab Lorazepam (Ativan) 0.5 mg PO Q6HR PRN; Protocol PRN Reason: Agitation Stop: 01/08/18 05:35 Last Admin: 11/15/17 03:04 Dose: 0.5 mg Magnesium Hydroxide (Milk Of Magnesia) 30 ml PO HS PRN PRN Reason: Constipation Stop: 01/08/18 01:19 Multivitamins/Vitamin C (Theragran) 1 tab PO DAILY ABHISHEK Stop: 01/08/18 08:59 Last Admin: 11/15/17 09:01 Dose: 1 tab Quetiapine Fumarate (Seroquel) 100 mg PO HS ABHISHEK; Protocol Stop: 01/10/18 20:59 Last Admin: 11/14/17 21:23 Dose: 100 mg Quetiapine Fumarate (Seroquel) 25 mg PO BID ABHISHEK; Protocol Stop: 01/10/18 08:59 Last Admin: 11/15/17 09:00 Dose: 25 mg Senna (Senna) 17.2 mg PO HS ABHISHEK Stop: 01/08/18 20:59 Last Admin: 11/14/17 21:24 Dose: 17.2 mg Zolpidem Tartrate (Ambien) 5 mg PO HS PRN PRN Reason: Insomnia Stop: 01/08/18 05:39 Last Admin: 11/13/17 21:03 Dose: 5 mg General: alert HEENT: NC/AT, PERRLA Neck: Supple Lungs: CTAB Cardiovascular: RRR, Normal S1, Normal S2 Abdomen: soft, non-tender, non-distended, positive bowel sound Neurological: no change Internal Medicine Assmt/Plan - Assessment Assessment: psychosis dementia oa - Plan Plan: cpm Nutritional Asmnt/Malnutr-PDOC - Dietary Evaluation Malnutrition Findings (Please click <Entered> for more info): Nutritional Asmnt/Malnutrition Start: 11/15/17 15: 00 Text: Status: Complete Freq: Protocol: Document 11/15/17 15:00 LCHENG (Rec: 11/15/17 15:09 [email or web address]) Nutritional Asmnt/Malnutrition Patient General Information Nutritional Screening Low Risk Diagnosis psychosis Pertinent Medical Hx/Surgical Hx OA, dementia Subjective Information Pt seen having lunch by the nurse station at time of visit . Pt stated appetite fine. Per EMR, PO intake 100% of meals. Current Diet Order/ Nutrition Support regular Pertinent Medications oscal w/ vit D, theragran, serqoeul, senna Pertinent Labs 11/08 BUn 29, glucose 122 Nutritional Hx/Data Height 5 ft 11 in Height (Calculated Centimeters) 180.3 Current Weight (lbs) 160 lb Weight (Calculated Kilograms) 72.6 Weight (Calculated Grams) 67531.8 [place] Body Weight 172 Body Mass Index (BMI) 22.3 Weight Status Approriate GI Symptoms GI Symptoms None Last BM 11/12 Difficult in: None Skin Integrity/Comment: intact Current %PO Good (75-100%) Estimated Nutritional Goals BEE in Kcals: Using Current wt Calories/Kcals/Kg 25-30 Kcals Calculated 6122-5565 Protein: Using Current wt Protein g/k Protein Calculated 73 Fluid: ml 1825-2190ml (1m/kcal) Nutritional Problem No current Nutrition Prob Problem N/A Malnutrition Alert Is there a minimum of two criteria No selected? Query Text:Check all the applicable criteria. A minimum of two criteria are recommended for diagnosis of either severe or non-severe malnutrition. Malnutrition Related to Morbid Obesity Malnutrition related to morbid obesity No Intervention/Recommendation Comments 1. Continue with regular diet as ordered. 2. Monitor PO intake, wt, labs and skin integrity 3. F/U as low risk in 7 days, 11/21 Expected Outcomes/Goals Expected Outcomes/Goals 1. PO intake to meet at least 75% of nutritional needs. 2. Wt stability, skin to remain intact, labs to approach WNL.
--- NOTE | 2017-11-15 23:37 | Progress Notes ---
DATE: SUBJECTIVE: Chart reviewed and the patient interviewed. Also discussed the patient's condition with the staff and reviewed records and labs. The patient continues to be suspicious and paranoid. The patient also is still easily agitated and is still in irritable mood. He also still needs lots of redirections. He also is suspicious and is still paranoid. Otherwise, the patient is compliant with taking his medications with no side effects. ASSESSMENT: The patient is still suspicious and is still paranoid and agitated. TREATMENT PLAN: Continue to monitor his behavior and his condition closely. Also, continue to work on his irritable mood. Also, working with case fitter in regard to discharge plans. Also, continue Seroquel 25 mg twice a day and 100 mg at bedtime and we will continue to follow up. JOB# [id number]
[2017-11-16] MEDS: Calcium Carb/Vit D 500 mg/200 U Tab PO SCH (08:18)
[2017-11-16] MEDS: Multivitamin Tab PO SCH (08:18)
--- NOTE | 2017-11-16 19:50 | Progress Notes ---
DATE: SUBJECTIVE: Chart reviewed and the patient interviewed. Also discussed the patient's condition with the staff and reviewed records and labs. The patient continued pacing up and down the hallway in a confused state. The patient also is still forgetful and depressed. He also is isolating himself. Otherwise, the patient is compliant with taking medications with no side effect of medications. ASSESSMENT: The patient is still confused and still needs lots of redirections. TREATMENT PLAN: Continue to monitor his behavior and his condition closely. Also, continue to work on his agitation and continue to follow up. JOB# [id number]
[2017-11-17] MEDS: Multivitamin Tab PO SCH (09:26)
[2017-11-17] MEDS: Calcium Carb/Vit D 500 mg/200 U Tab PO SCH (09:26)
--- NOTE | 2017-11-17 11:39 | General Progress Note ---
Subjective - Review of Systems Events since last encounter: patient confused denies pain Objective - Results Result Diagrams: 11/08/17 22:09 11/08/17 22:09 Recent Labs: Laboratory Last Values WBC 8.4 Th/cmm (4.8-10.8) 11/08/17 22:09 RBC 4.73 Mil/cmm (3.80-5.80) 11/08/17 22:09 Hgb 14.1 gm/dL (12-16) 11/08/17 22:09 Hct 42.1 % (41.0-60) 11/08/17 22:09 MCV 89.2 fl (80-99) 11/08/17 22:09 MCH 29.8 pg (27.0-31.0) 11/08/17 22:09 MCHC Differential 33.4 pg (28.0-36.0) 11/08/17 22:09 RDW 12.3 % (11.5-20.0) 11/08/17 22:09 Plt Count 287 Th/cmm (150-400) 11/08/17 22:09 MPV 7.6 fl 11/08/17 22:09 Neutrophils % 70.0 % (40.0-80.0) 11/08/17 22:09 Lymphocytes % 20.7 % (20.0-50.0) 11/08/17 22:09 Monocytes % 7.9 % (2.0-10.0) 11/08/17 22:09 Eosinophils % 1.0 % (0.0-5.0) 11/08/17 22:09 Basophils % 0.4 % (0.0-2.0) 11/08/17 22:09 Sodium 140 mEq/L (136-145) 11/08/17 22:09 Potassium 3.5 mEq/L (3.5-5.1) 11/08/17 22:09 Chloride 104 mEq/L (98-107) 11/08/17 22:09 Carbon Dioxide 24.4 mEq/L (21.0-31.0) 11/08/17 22:09 Anion Gap 15.1 (7.0-16.0) 11/08/17 22:09 BUN 29 mg/dL (7-25) H 11/08/17 22:09 Creatinine 1.3 mg/dL (0.7-1.3) 11/08/17 22:09 Est GFR ( Amer) TNP 11/08/17 22:09 Est GFR (Non-Af Amer) TNP 11/08/17 22:09 BUN/Creatinine Ratio 22.3 11/08/17 22:09 Glucose 122 mg/dL (70-105) H 11/08/17 22:09 Calcium 9.5 mg/dL (8.6-10.3) 11/08/17 22:09 Total Bilirubin 0.7 mg/dL (0.3-1.0) 11/08/17 22:09 AST 60 U/L (13-39) H 11/08/17 22:09 ALT 40 U/L (7-52) 11/08/17 22:09 Alkaline Phosphatase 68 U/L (34-104) 11/08/17 22:09 Total Protein 7.5 gm/dL (6.0-8.3) 11/08/17 22:09 Albumin 4.4 gm/dL (4.2-5.5) 11/08/17 22:09 Globulin 3.1 gm/dL 11/08/17 22:09 Albumin/Globulin Ratio 1.4 (1.0-1.8) 11/08/17 22:09 - Physical Exam Vitals and I&O: Vital Signs Temp 98.5 F 11/17/17 06:40 Pulse 92 11/17/17 06:40 Resp 20 11/17/17 06:40 BP 111/69 11/17/17 06:40 Pulse Ox 94 11/17/17 06:40 Intake & Output 11/16/17 11/17/17 11/17/17 18:59 06:59 18:59 Intake Total 970 Output Total 2 Balance 968 Intake: Oral 970 Output: Urine 2 Other: # Voids 1 Stool Characteristics Soft Active Medications: Current Medications Acetaminophen (Tylenol) 650 mg PO Q4HR PRN PRN Reason: Mild Pain / Temp above 100 Stop: 01/08/18 01:19 Calcium/Vitamin D (Oscal W/Vitamin D) 1 tab PO DAILY ABHISHEK Stop: 01/08/18 08:59 Last Admin: 11/17/17 09:26 Dose: 1 tab Lorazepam (Ativan) 0.5 mg PO Q6HR PRN; Protocol PRN Reason: Agitation Stop: 01/08/18 05:35 Last Admin: 11/16/17 23:41 Dose: 0.5 mg Magnesium Hydroxide (Milk Of Magnesia) 30 ml PO HS PRN PRN Reason: Constipation Stop: 01/08/18 01:19 Multivitamins/Vitamin C (Theragran) 1 tab PO DAILY ABHISHEK Stop: 01/08/18 08:59 Last Admin: 11/17/17 09:26 Dose: 1 tab Quetiapine Fumarate (Seroquel) 100 mg PO HS ABHISHEK; Protocol Stop: 01/10/18 20:59 Last Admin: 11/16/17 20:33 Dose: 100 mg Quetiapine Fumarate (Seroquel) 25 mg PO BID ABHISHEK; Protocol Stop: 01/10/18 08:59 Last Admin: 11/17/17 09:26 Dose: 25 mg Senna (Senna) 17.2 mg PO HS ABHISHEK Stop: 01/08/18 20:59 Last Admin: 11/16/17 20:33 Dose: 17.2 mg Zolpidem Tartrate (Ambien) 5 mg PO HS PRN PRN Reason: Insomnia Stop: 01/08/18 05:39 Last Admin: 11/16/17 23:55 Dose: 5 mg Nutritional Asmnt/Malnutr-PDOC - Dietary Evaluation Malnutrition Findings (Please click <Entered> for more info): Nutritional Asmnt/Malnutrition Start: 11/15/17 15: 00 Text: Status: Complete Freq: Protocol: Document 11/15/17 15:00 LCHENG (Rec: 11/15/17 15:09 LCHENG [email or web address]) Nutritional Asmnt/Malnutrition Patient General Information Nutritional Screening Low Risk Diagnosis psychosis Pertinent Medical Hx/Surgical Hx OA, dementia Subjective Information Pt seen having lunch by the nurse station at time of visit . Pt stated appetite fine. Per EMR, PO intake 100% of meals. Current Diet Order/ Nutrition Support regular Pertinent Medications oscal w/ vit D, theragran, serqoeul, senna Pertinent Labs 11/08 BUn 29, glucose 122 Nutritional Hx/Data Height 1.8 m Height (Calculated Centimeters) 180.3 Current Weight (lbs) 72.575 kg Weight (Calculated Kilograms) 72.6 Weight (Calculated Grams) 39260.8 [place] Body Weight 172 Body Mass Index (BMI) 22.3 Weight Status Approriate GI Symptoms GI Symptoms None Last BM 11/12 Difficult in: None Skin Integrity/Comment: intact Current %PO Good (75-100%) Estimated Nutritional Goals BEE in Kcals: Using Current wt Calories/Kcals/Kg 25-30 Kcals Calculated 8133-5631 Protein: Using Current wt Protein g/k Protein Calculated 73 Fluid: ml 1825-2190ml (1m/kcal) Nutritional Problem No current Nutrition Prob Problem N/A Malnutrition Alert Is there a minimum of two criteria No selected? Query Text:Check all the applicable criteria. A minimum of two criteria are recommended for diagnosis of either severe or non-severe malnutrition. Malnutrition Related to Morbid Obesity Malnutrition related to morbid obesity No Intervention/Recommendation Comments 1. Continue with regular diet as ordered. 2. Monitor PO intake, wt, labs and skin integrity 3. F/U as low risk in 7 days, 11/21 Expected Outcomes/Goals Expected Outcomes/Goals 1. PO intake to meet at least 75% of nutritional needs. 2. Wt stability, skin to remain intact, labs to approach WNL.
--- NOTE | 2017-11-17 19:21 | Progress Notes ---
DATE: 11/17/2017 PSYCHIATRIC PROGRESS NOTE SUBJECTIVE: Chart reviewed and the patient interviewed. Also discussed the patient's condition with the staff and reviewed records and labs. The patient continued to be anxious and he is still restless. The patient also is still pacing up and down the unit. The patient also is still confused and is still unable to answer questions coherently. He also still needs redirection, but seems to be slightly easier to redirect him. The patient also is compliant with taking his medications with no side effects of medications. ASSESSMENT: The patient seems to be slightly less agitated and less irritable. TREATMENT PLAN: Continue to monitor his behavior and his condition. Also, continue to work on adjusting psychotropic medications and continue to follow up. [facility]# [id number]
[2017-11-18] MEDS: Calcium Carb/Vit D 500 mg/200 U Tab PO SCH (08:46)
[2017-11-18] MEDS: Multivitamin Tab PO SCH (08:46)
--- NOTE | 2017-11-18 16:00 | General Progress Note ---
Subjective - Review of Systems Events since last encounter: patient irritable, confused Objective - Results Result Diagrams: 11/08/17 22:09 11/08/17 22:09 Recent Labs: Laboratory Last Values WBC 8.4 Th/cmm (4.8-10.8) 11/08/17 22:09 RBC 4.73 Mil/cmm (3.80-5.80) 11/08/17 22:09 Hgb 14.1 gm/dL (12-16) 11/08/17 22:09 Hct 42.1 % (41.0-60) 11/08/17 22:09 MCV 89.2 fl (80-99) 11/08/17 22:09 MCH 29.8 pg (27.0-31.0) 11/08/17 22:09 MCHC Differential 33.4 pg (28.0-36.0) 11/08/17 22:09 RDW 12.3 % (11.5-20.0) 11/08/17 22:09 Plt Count 287 Th/cmm (150-400) 11/08/17 22:09 MPV 7.6 fl 11/08/17 22:09 Neutrophils % 70.0 % (40.0-80.0) 11/08/17 22:09 Lymphocytes % 20.7 % (20.0-50.0) 11/08/17 22:09 Monocytes % 7.9 % (2.0-10.0) 11/08/17 22:09 Eosinophils % 1.0 % (0.0-5.0) 11/08/17 22:09 Basophils % 0.4 % (0.0-2.0) 11/08/17 22:09 Sodium 140 mEq/L (136-145) 11/08/17 22:09 Potassium 3.5 mEq/L (3.5-5.1) 11/08/17 22:09 Chloride 104 mEq/L (98-107) 11/08/17 22:09 Carbon Dioxide 24.4 mEq/L (21.0-31.0) 11/08/17 22:09 Anion Gap 15.1 (7.0-16.0) 11/08/17 22:09 BUN 29 mg/dL (7-25) H 11/08/17 22:09 Creatinine 1.3 mg/dL (0.7-1.3) 11/08/17 22:09 Est GFR ( Amer) TNP 11/08/17 22:09 Est GFR (Non-Af Amer) TNP 11/08/17 22:09 BUN/Creatinine Ratio 22.3 11/08/17 22:09 Glucose 122 mg/dL (70-105) H 11/08/17 22:09 Calcium 9.5 mg/dL (8.6-10.3) 11/08/17 22:09 Total Bilirubin 0.7 mg/dL (0.3-1.0) 11/08/17 22:09 AST 60 U/L (13-39) H 11/08/17 22:09 ALT 40 U/L (7-52) 11/08/17 22:09 Alkaline Phosphatase 68 U/L (34-104) 11/08/17 22:09 Total Protein 7.5 gm/dL (6.0-8.3) 11/08/17 22:09 Albumin 4.4 gm/dL (4.2-5.5) 11/08/17 22:09 Globulin 3.1 gm/dL 11/08/17 22:09 Albumin/Globulin Ratio 1.4 (1.0-1.8) 11/08/17 22:09 - Physical Exam Vitals and I&O: Vital Signs Temp 98.9 F 11/18/17 14:22 Pulse 85 11/18/17 14:22 Resp 18 11/18/17 14:22 BP 105/63 11/18/17 14:22 Pulse Ox 97 11/18/17 14:22 Intake & Output 11/17/17 11/18/17 11/18/17 18:59 06:59 18:59 Intake Total 600 790 Balance 600 790 Intake: Oral 600 790 Other: # Voids 3 2 # Bowel Movements 1 Stool Characteristics Soft Formed Nutritional Asmnt/Malnutr-PDOC - Dietary Evaluation Malnutrition Findings (Please click <Entered> for more info): Nutritional Asmnt/Malnutrition Start: 11/15/17 15: 00 Text: Status: Complete Freq: Protocol: Document 11/15/17 15:00 BILLG (Rec: 11/15/17 15:09 CRIS [email or web address]) Nutritional Asmnt/Malnutrition Patient General Information Nutritional Screening Low Risk Diagnosis psychosis Pertinent Medical Hx/Surgical Hx OA, dementia Subjective Information Pt seen having lunch by the nurse station at time of visit . Pt stated appetite fine. Per EMR, PO intake 100% of meals. Current Diet Order/ Nutrition Support regular Pertinent Medications oscal w/ vit D, theragran, serqoeul, senna Pertinent Labs 11/08 BUn 29, glucose 122 Nutritional Hx/Data Height 1.8 m Height (Calculated Centimeters) 180.3 Current Weight (lbs) 72.575 kg Weight (Calculated Kilograms) 72.6 Weight (Calculated Grams) 26706.8 [place] Body Weight 172 Body Mass Index (BMI) 22.3 Weight Status Approriate GI Symptoms GI Symptoms None Last BM 11/12 Difficult in: None Skin Integrity/Comment: intact Current %PO Good (75-100%) Estimated Nutritional Goals BEE in Kcals: Using Current wt Calories/Kcals/Kg 25-30 Kcals Calculated 5361-5639 Protein: Using Current wt Protein g/k Protein Calculated 73 Fluid: ml 1825-2190ml (1m/kcal) Nutritional Problem No current Nutrition Prob Problem N/A Malnutrition Alert Is there a minimum of two criteria No selected? Query Text:Check all the applicable criteria. A minimum of two criteria are recommended for diagnosis of either severe or non-severe malnutrition. Malnutrition Related to Morbid Obesity Malnutrition related to morbid obesity No Intervention/Recommendation Comments 1. Continue with regular diet as ordered. 2. Monitor PO intake, wt, labs and skin integrity 3. F/U as low risk in 7 days, 11/21 Expected Outcomes/Goals Expected Outcomes/Goals 1. PO intake to meet at least 75% of nutritional needs. 2. Wt stability, skin to remain intact, labs to approach WNL.
--- NOTE | 2017-11-19 03:38 | Progress Notes ---
DATE: 11/18/[address] Hernandez. Case was discussed with staff of the patient, reviewed records. This is a 76-year-old male who was admitted on 11/08/2017. The patient apparently was told by the staff that the patient is in the process of getting discharge, Dr. Hernandez gave the order for him to discharge. He came because he is not easily agitated and aggressive behavior. When I talked to the patient, he was pleasant, cooperative. No acting out behavior, sleeping well, eating well so, Dr. Hernandez gave the order already, so even prior to discharge, but there was no reason to hold the discharge and the patient will be discharged to a lesser level of care. No longer meeting criteria for further inpatient treatment. JOB# [id number]
--- NOTE | 2017-11-19 20:34 | Discharge Summary ---
DATE OF DISCHARGE: 11/18/2017 PATIENT'S AGE: 76. SEX: Male. PHYSICIAN: Cara Hernandez M.D., M.P.H. FINAL DIAGNOSIS/PRIMARY DIAGNOSIS: Unspecified psychosis. REASON FOR HOSPITALIZATION: The patient was admitted to the hospital because of increased agitation and confusion and inability to follow directions. HOSPITAL COURSE: The patient continued to be agitated and in irritable mood. The patient also was confused and he was pacing up and down the unit in a confused state. He is not able to follow directions and not getting somehow agitated at times. The patient was started on Seroquel. That helped patient to be calmer and he was less agitated. He also was interacting more. He was able to follow directions easily. The patient also was accepted back to [facility] and patient was discharged there. The patient also was taking his medications regularly and he seems to be less depressed. AFTER DISCHARGE PLANS: The patient discharged from the hospital to [facility] with plan to continue his treatment and follow up there. PHYSICAL EXAMINATION: The patient showed no major medical problems and no major abnormal labs. EXPECTED OUTCOME AFTER DISCHARGE: Fair if the patient continues with his outpatient treatment and follow up with discharge plans and continue to take his psychotropic medications. JOB# [id number]
== END 2017-11-18 15:30 | DRG 885 ==
LOC: ER 20:27 → GERO2 23:22
PROVIDERS: ADMIT Psychiatry & Neurology Psychiatry; ATTEND Psychiatry & Neurology Psychiatry
DX: F23 Brief psychotic disorder (principal); F03.91 Unspecified dementia, unspecified severity, with behavioral disturbance; M19.90 Unspecified osteoarthritis, unspecified site
CPT/HCPCS: 36415-UA; 71045-TC; 80053-TC; 85025-TC; G0410; Z7610

== ENCOUNTER 2019-01-08 09:45 | Inpatient (IN) | payer MEDICARE, OTHER ==
[2019-01-08 10:26] VITALS: BP 106/77
[2019-01-08] MEDS ORDERED: Magnesium Hydroxide (MOM) 30 mL UDC PO PRN (10:27)
[2019-01-08] MEDS ORDERED: Maalox 30 mL Cup PO PRN (10:27)
[2019-01-08 13:48] LABS: CHOLESTEROL 165 mg/dL (<200); HDL -HIGH DENSITY LIPOPROTEIN 55 mg/dL (23-92); TRIGLYCERIDES 97 mg/dL (<150)
--- NOTE | 2019-01-09 02:07 | Psychiatric Evaluation ---
DATE OF SERVICE: 01/08/2019 PYCHIATRIC INITIAL EVALUATION AND MENTAL STATUS EXAMINATION AGE: 78. SEX: Male. PHYSICIAN: Dr. Hernandez. CHIEF COMPLAINT: [id number] hold for grave disability. HISTORY OF PRESENT ILLNESS: The patient is a 78-year-old male who was transferred from [facility] for grave disability. The patient was evaluated in [facility] after he was brought from custodial, was admitted to the hospital because of evaluation of scrotal hernia. The patient has been delusional and confused and he thinks that there is a abhijeet who is going to reduce his hernia. The patient also has been believing that his neighbor is trying to hurt him and wants him a gun, so he can take over his land, according to the admission reports. The patient denied any thoughts of suicide, but he is confused and delusional. He also has been forgetful with difficulty following directions. PAST PSYCHIATRIC HISTORY: The patient has history of dementia. PAST MEDICAL HISTORY: The patient has scrotal hernia. No other major medical problems. SOCIAL HISTORY: The patient has no history of alcohol or street drug use at this time. ALLERGIES: No known allergies. MENTAL STATUS EXAMINATION: The patient appears slightly older than his stated age. Anxious. Confused. Easily agitated and in irritable mood. The patient denies any hallucinations or delusions, but actively responding to stimuli and talking to himself. He denies any thoughts of suicide or homicide. The patient is alert, but seems to be disoriented to place and person and situation. Impaired immediate and recent memory, but intact remote memory. Poor insight and poor judgment. ASSESSMENT: PRIMARY DIAGNOSIS: Unspecified psychosis. SECONDARY DIAGNOSIS: Dementia, moderate to severe, with psychotic features. TREATMENT PLAN: We will monitor the patient's behavior closely. We will adjust psychotropic medications and monitor behavior. ESTIMATED LENGTH OF STAY: 5-7 days. PATIENT'S STRENGTHS AND WEAKNESSES: The patient seems to be in relatively fair health. Weaknesses is his poor judgment and agitation and forgetfulness. AFTER DISCHARGE PLAN: The patient might need placement and outpatient treatment and followup will continue as an outpatient. CRITERIA FOR DISCHARGE: The patient will not be agitated and will stabilize psychotropic medications and establish outpatient treatment plans. [facility]# [id number]
[2019-01-09 07:06] LABS: A1C 5.6 % (4.8-5.6)
--- NOTE | 2019-01-09 08:22 | Progress Notes ---
DATE: SUBJECTIVE: Chart was reviewed and the patient interviewed. Also discussed the patient's condition with the staff and reviewed records and labs. The patient is severely confused. The patient was not able to tell me about where he lives and about his age, but he did realize and told me about his date. The patient also is still anxious and is still preoccupied and seems to be actively responding to staff. The patient also still needs lots of redirections. Otherwise, the patient is cooperative with the staff and is able to follow directions and seems to be less irritable and less agitated. ASSESSMENT: The patient is still confused and needs redirections. TREATMENT PLAN: We will continue to monitor his behavior and his condition closely. Also, we will start the patient on Risperdal and Namenda and we will adjust the dose. Also, we will work on behavior modification and on his confusion. [facility]# [id number]
[2019-01-09] MEDS: Multivitamin Tab PO SCH (08:29)
--- NOTE | 2019-01-09 12:49 | History & Physical ---
ADMIT DATE: 01/08/2019 This is a cross coverage by Dr. Staley. REASON FOR CONSULTATION: Medical management and clearance. HISTORY OF PRESENT ILLNESS: This is a 78-year-old male with history of dementia since I have [facility] and cleared medically. The patient denies chest pain or shortness of breath. PAST MEDICAL HISTORY: As mentioned in history of present illness. PAST SURGICAL HISTORY: Status post right arm surgery secondary to dog bite. ALLERGIES: No known drug allergies. MEDICATIONS: The patient is on lorazepam, magnesium, multivitamins, Seroquel, Ambien, Tylenol, calcium, senna. FAMILY HISTORY: Noncontributory. SOCIAL HISTORY: Smokes on occasion and smokes marijuana. Occasional alcohol and intravenous drug use. The patient ____, not , no children. REVIEW OF SYSTEMS: GENERAL: The patient denies any exertional symptoms. HEENT: No blurred vision. LUNGS: No diagnosis of COPD or asthma. HEART: Questionable history of hypertension, not on medication. ABDOMEN: No nausea, vomiting, or pain. GENITOURINARY: The patient has hernia. NEUROLOGIC: No headache, seizure or syncope. PSYCHIATRIC: See above. PHYSICAL EXAMINATION: VITAL SIGNS: Blood pressure 133/80, respirations 20, pulse 98, temperature 97.6. GENERAL: Elderly male who appears his stated age. NECK: Supple. No mass. LUNGS: Equal breath sounds without rales or rhonchi. HEART: Regular rate and rhythm without appreciable murmur. ABDOMEN: Soft, globular. EXTREMITIES: Positive excoriation. Positive right inguinal hernia. NEUROLOGIC: ___. Gait is within normal range. LABORATORY DATA: Triglycerides 97, cholesterol 165, BUN and creatinine 27 and 1.6. ASSESSMENT AND PLAN: Dementia, renal insufficiency, right groin hernia. We will refer the patient to Surgery for outpatient correction of inguinal hernia, currently not in pain. No sign of incarceration. We will monitor renal function. The patient was encouraged to increase fluid. Psychiatry to manage the patient for psych. We will continue to follow. JOB# [id number]
[2019-01-09] MEDS: Calcium Carb/Vit D 500 mg/200 U Tab PO SCH (17:03)
[2019-01-10] MEDS: Calcium Carb/Vit D 500 mg/200 U Tab PO SCH (09:30)
[2019-01-10] MEDS: Multivitamin Tab PO SCH (09:31)
--- NOTE | 2019-01-10 12:58 | Internal Medicine Prog Note ---
Internal Medicine Subjective - Subjective Patient seen and examined:: with staff, chart reviewed Patient is:: awake, verbal, interactive, in bed Per staff patient has:: no adverse event, no episodes of fall, tolerating meds Internal Medicine Objective - Results Recent Labs: Laboratory Last Values Triglycerides 97 mg/dL (<150) 01/08/19 13:20 Cholesterol 165 mg/dL (<200) 01/08/19 13:20 LDL Cholesterol Direct 89 mg/dL (75-193) 01/08/19 13:20 HDL Cholesterol 55 mg/dL (23-92) 01/08/19 13:20 - Physical Exam Vitals and I&O: Vital Signs Temp 99.3 F 01/10/19 05:53 Pulse 81 01/10/19 05:53 Resp 20 01/10/19 05:53 BP 128/85 01/10/19 05:53 Pulse Ox 97 01/10/19 05:53 Intake & Output 01/09/19 01/10/19 01/10/19 18:59 06:59 18:59 Intake Total 1100 1200 Balance 1100 1200 Intake: Oral 740 1200 Other 360 Other: # Voids 3 3 # Bowel Movements 0 0 Stool Characteristics Soft Soft Soft Active Medications: Current Medications Acetaminophen (Tylenol) 650 mg PO Q4HR PRN PRN Reason: Mild Pain / Temp above 100 Stop: 03/09/19 10:26 Al Hydrox/Mg Hydrox/Simethicone (Maalox) 30 ml PO Q4HR PRN PRN Reason: GI DISTRESS Stop: 03/09/19 10:26 Calcium/Vitamin D (Oscal W/Vitamin D) 1 tab PO DAILY [facility] Stop: 03/10/19 13:14 Last Admin: 01/10/19 09:30 Dose: 1 tab Donepezil HCl (Aricept) 5 mg PO DAILY [facility] Stop: 03/10/19 08:59 Last Admin: 01/10/19 09:29 Dose: 5 mg Lorazepam (Ativan) 0.5 mg PO Q6HR PRN; Protocol PRN Reason: Anxiety Stop: 03/09/19 13:46 Last Admin: 01/10/19 09:30 Dose: 0.5 mg Magnesium Hydroxide (Milk Of Magnesia) 30 ml PO HS PRN PRN Reason: Constipation Memantine (Namenda) 5 mg PO BID [facility] Stop: 03/10/19 08:59 Last Admin: 01/10/19 09:30 Dose: 5 mg Multivitamins/Vitamin C (Theragran) 1 tab PO DAILY [facility] Stop: 03/10/19 08:59 Last Admin: 01/10/19 09:31 Dose: 1 tab Risperidone (Risperdal) 0.25 mg PO BID [facility]; Protocol Stop: 03/10/19 08:59 Last Admin: 01/10/19 09:30 Dose: 0.25 mg Senna (Senna) 17.2 mg PO HS [facility] Stop: 03/10/19 20:59 Last Admin: 01/09/19 20:23 Dose: 17.2 mg Trazodone HCl (Desyrel) 50 mg PO HS [facility]; Protocol Stop: 03/09/19 20:59 Last Admin: 01/09/19 20:23 Dose: 50 mg Zolpidem Tartrate (Ambien) 5 mg PO HS PRN PRN Reason: Insomnia Stop: 03/09/19 10:26 General: alert HEENT: NC/AT, PERRLA Neck: Supple, No JVD Lungs: CTAB Cardiovascular: RRR, Normal S1, Normal S2, with murmur Abdomen: soft, non-tender, non-distended, positive bowel sound Extremities: excoriation Neurological: no change Internal Medicine Assmt/Plan - Assessment Assessment: ASSESSMENT AND PLAN: Dementia, renal insufficiency, right groin hernia. - Plan Plan: PLAN: We will refer the patient to Surgery for outpatient correction of inguinal hernia, currently not in pain. No sign of incarceration. We will monitor renal function. The patient was encouraged to increase fluid.
--- NOTE | 2019-01-10 16:00 | Progress Notes ---
DATE: 01/10/[address] Hernandez. Case was discussed with staff of the patient, reviewed records. This is a 78-year-old male who was admitted on 01/08/2019 on a hold for gait disability came from [facility]. The patient has been delusional, confused. He thinks that there is a abhijeet who is going to reduce his hernia. Apparently, he does have a scrotal hernia. The patient denies thoughts of suicide, but he was confused, delusional, forgetful, unable to follow direction with a history of dementia. The patient continues to be confused, continues to be unpredictable, impulsive, needing redirection, unable to give information, unable to make safe plan for self-care and internally preoccupied, has been compliant with the medication with no side effects, no sedation, no nausea, and no extrapyramidal symptoms. He is on Risperdal 0.25 mg twice a day, Namenda 5 mg twice a day, Aricept 5 mg daily. We will continue to work with the patient in group therapy, milieu therapy, and adjust the medication as needed. JOB# [id number]
[2019-01-11] MEDS: Calcium Carb/Vit D 500 mg/200 U Tab PO SCH (09:27)
[2019-01-11] MEDS: Multivitamin Tab PO SCH (09:27)
--- NOTE | 2019-01-11 12:35 | Internal Medicine Prog Note ---
Internal Medicine Subjective - Subjective Patient seen and examined:: with staff, chart reviewed Patient is:: awake, verbal, interactive, in bed Per staff patient has:: no adverse event, no episodes of fall, tolerating meds Internal Medicine Objective - Results Recent Labs: Laboratory Last Values Triglycerides 97 mg/dL (<150) 01/08/19 13:20 Cholesterol 165 mg/dL (<200) 01/08/19 13:20 LDL Cholesterol Direct 89 mg/dL (75-193) 01/08/19 13:20 HDL Cholesterol 55 mg/dL (23-92) 01/08/19 13:20 - Physical Exam Vitals and I&O: Vital Signs Temp 98.8 F 01/11/19 06:06 Pulse 84 01/11/19 06:06 Resp 18 01/11/19 08:00 BP 151/76 01/11/19 06:06 Pulse Ox 96 01/11/19 06:06 Intake & Output 01/10/19 01/11/19 01/11/19 18:59 06:59 18:59 Intake Total 1200 Balance 1200 Intake: Oral 1200 Other: Stool Characteristics Soft Soft Soft Active Medications: Current Medications Acetaminophen (Tylenol) 650 mg PO Q4HR PRN PRN Reason: Mild Pain / Temp above 100 Stop: 03/09/19 10:26 Al Hydrox/Mg Hydrox/Simethicone (Maalox) 30 ml PO Q4HR PRN PRN Reason: GI DISTRESS Stop: 03/09/19 10:26 Calcium/Vitamin D (Oscal W/Vitamin D) 1 tab PO DAILY [facility] Stop: 03/10/19 13:14 Last Admin: 01/11/19 09:27 Dose: 1 tab Donepezil HCl (Aricept) 5 mg PO DAILY [facility] Stop: 03/10/19 08:59 Last Admin: 01/11/19 09:27 Dose: 5 mg Lorazepam (Ativan) 0.5 mg PO Q6HR PRN; Protocol PRN Reason: Anxiety Stop: 03/09/19 13:46 Last Admin: 01/10/19 09:30 Dose: 0.5 mg Magnesium Hydroxide (Milk Of Magnesia) 30 ml PO HS PRN PRN Reason: Constipation Memantine (Namenda) 5 mg PO BID [facility] Stop: 03/10/19 08:59 Last Admin: 08/18/19 09:27 Dose: 5 mg Multivitamins/Vitamin C (Theragran) 1 tab PO DAILY [facility] Stop: 03/10/19 08:59 Last Admin: 01/11/19 09:27 Dose: 1 tab Risperidone (Risperdal) 0.25 mg PO BID [facility]; Protocol Stop: 03/10/19 08:59 Last Admin: 01/11/19 09:27 Dose: 0.25 mg Senna (Senna) 17.2 mg PO HS [facility] Stop: 03/10/19 20:59 Last Admin: 01/10/19 20:43 Dose: 17.2 mg Trazodone HCl (Desyrel) 50 mg PO HS [facility]; Protocol Stop: 03/09/19 20:59 Last Admin: 01/10/19 20:43 Dose: 50 mg Zolpidem Tartrate (Ambien) 5 mg PO HS PRN PRN Reason: Insomnia Stop: 03/09/19 10:26 Last Admin: 01/10/19 20:43 Dose: 5 mg General: alert HEENT: NC/AT, PERRLA Neck: Supple, No JVD Lungs: CTAB Cardiovascular: RRR, Normal S1, Normal S2, with murmur Abdomen: soft, non-tender, non-distended, positive bowel sound Extremities: excoriation Neurological: no change Internal Medicine Assmt/Plan - Assessment Assessment: ASSESSMENT AND PLAN: Dementia, renal insufficiency, right groin hernia. - Plan Plan: PLAN: We will refer the patient to Surgery for outpatient correction of inguinal hernia, currently not in pain. No sign of incarceration. We will monitor renal function. The patient was encouraged to increase fluid.
--- NOTE | 2019-01-11 14:48 | Progress Notes ---
DATE: 01/11/2019 Case was discussed with staff of the patient, reviewed records. The patient continues to be confused, continues to be unable to participate in a meaningful conversation or make safe plan for self-care. Continues to be anxious, continues preoccupied. Continues to need redirection, isolating himself. He has been able to follow directions better. No side effects to the medication. No sedation, no nausea, no extrapyramidal symptoms. We will continue to work with the patient in group therapy, milieu therapy, and adjust medications as needed. JOB# [id number]
[2019-01-12] MEDS: Calcium Carb/Vit D 500 mg/200 U Tab PO SCH (08:26)
[2019-01-12] MEDS: Multivitamin Tab PO SCH (08:26)
--- NOTE | 2019-01-12 12:27 | Internal Medicine Prog Note ---
Internal Medicine Subjective - Subjective Patient seen and examined:: with staff, chart reviewed Patient is:: awake, verbal, interactive, in bed Per staff patient has:: no adverse event, no episodes of fall, tolerating meds Internal Medicine Objective - Results Recent Labs: Laboratory Last Values Triglycerides 97 mg/dL (<150) 01/08/19 13:20 Cholesterol 165 mg/dL (<200) 01/08/19 13:20 LDL Cholesterol Direct 89 mg/dL (75-193) 01/08/19 13:20 HDL Cholesterol 55 mg/dL (23-92) 01/08/19 13:20 - Physical Exam Vitals and I&O: Vital Signs Temp 98.8 F 01/12/19 06:18 Pulse 82 01/12/19 06:18 Resp 18 01/12/19 06:18 BP 135/81 01/12/19 06:18 Pulse Ox 96 01/12/19 06:18 Intake & Output 01/11/19 01/12/19 01/12/19 18:59 06:59 18:59 Intake Total 950 120 Balance 950 120 Intake: Oral 950 120 Other: # Voids 3 3 # Bowel Movements 1 0 Stool Characteristics Soft Soft Active Medications: Current Medications Acetaminophen (Tylenol) 650 mg PO Q4HR PRN PRN Reason: Mild Pain / Temp above 100 Stop: 03/09/19 10:26 Al Hydrox/Mg Hydrox/Simethicone (Maalox) 30 ml PO Q4HR PRN PRN Reason: GI DISTRESS Stop: 03/09/19 10:26 Calcium/Vitamin D (Oscal W/Vitamin D) 1 tab PO DAILY [facility] Stop: 03/10/19 13:14 Last Admin: 01/12/19 08:26 Dose: 1 tab Donepezil HCl (Aricept) 5 mg PO DAILY [facility] Stop: 03/10/19 08:59 Last Admin: 01/12/19 08:26 Dose: 5 mg Lorazepam (Ativan) 0.5 mg PO Q6HR PRN; Protocol PRN Reason: Anxiety Stop: 03/09/19 13:46 Last Admin: 01/10/19 09:30 Dose: 0.5 mg Magnesium Hydroxide (Milk Of Magnesia) 30 ml PO HS PRN PRN Reason: Constipation Memantine (Namenda) 5 mg PO BID [facility] Stop: 03/10/19 08:59 Last Admin: 01/12/19 08:26 Dose: 5 mg Multivitamins/Vitamin C (Theragran) 1 tab PO DAILY [facility] Stop: 03/10/19 08:59 Last Admin: 01/12/19 08:26 Dose: 1 tab Risperidone (Risperdal) 0.25 mg PO BID [facility]; Protocol Stop: 03/10/19 08:59 Last Admin: 01/12/19 08:26 Dose: 0.25 mg Senna (Senna) 17.2 mg PO HS [facility] Stop: 03/10/19 20:59 Last Admin: 01/11/19 21:12 Dose: 17.2 mg Trazodone HCl (Desyrel) 50 mg PO HS [facility]; Protocol Stop: 03/09/19 20:59 Last Admin: 01/11/19 21:12 Dose: 50 mg Zolpidem Tartrate (Ambien) 5 mg PO HS PRN PRN Reason: Insomnia Stop: 03/09/19 10:26 Last Admin: 01/11/19 21:12 Dose: 5 mg General: alert HEENT: NC/AT, PERRLA Neck: Supple, No JVD Lungs: CTAB Cardiovascular: RRR, Normal S1, Normal S2, with murmur Abdomen: soft, non-tender, non-distended, positive bowel sound Extremities: excoriation Neurological: no change Internal Medicine Assmt/Plan - Assessment Assessment: ASSESSMENT AND PLAN: Dementia, renal insufficiency, right groin hernia. - Plan Plan: PLAN: We will refer the patient to Surgery for outpatient correction of inguinal hernia, currently not in pain. No sign of incarceration. We will monitor renal function. The patient was encouraged to increase fluid.
--- NOTE | 2019-01-12 19:46 | Progress Notes ---
DATE: SUBJECTIVE: Chart reviewed and the patient interviewed. Also discussed the patient's condition with the staff and reviewed records and labs. The patient continued to be confused. The patient also is still forgetful and he still needs lots of redirections. The patient also is delusional and paranoid and easily agitated. He also is still interacting minimally with others. He also still seems to be paranoid and suspicious. Otherwise, the patient is unable to provide any safe plan for self-care. The patient continued to take Aricept and Namenda as well as Risperdal. It seemed that Risperdal helping slightly with his confusion and agitation. ASSESSMENT: The patient is still agitated and confused. TREATMENT PLAN: We will continue to monitor behavior and condition closely. Also, we will continue Risperdal same dose and continue to follow up. JOB# [id number]
[2019-01-13] MEDS: Calcium Carb/Vit D 500 mg/200 U Tab PO SCH (08:38)
[2019-01-13] MEDS: Multivitamin Tab PO SCH (08:38)
--- NOTE | 2019-01-13 12:36 | Internal Medicine Prog Note ---
Internal Medicine Subjective - Subjective Patient seen and examined:: with staff, chart reviewed Patient is:: awake, verbal, interactive, in bed Per staff patient has:: no adverse event, no episodes of fall, tolerating meds Internal Medicine Objective - Results Recent Labs: Laboratory Last Values Triglycerides 97 mg/dL (<150) 01/08/19 13:20 Cholesterol 165 mg/dL (<200) 01/08/19 13:20 LDL Cholesterol Direct 89 mg/dL (75-193) 01/08/19 13:20 HDL Cholesterol 55 mg/dL (23-92) 01/08/19 13:20 - Physical Exam Vitals and I&O: Vital Signs Temp 98.3 F 01/13/19 04:58 Pulse 77 01/13/19 04:58 Resp 18 01/13/19 08:00 BP 130/87 01/13/19 04:58 Pulse Ox 96 01/13/19 04:58 Intake & Output 01/12/19 01/13/19 01/13/19 18:59 06:59 18:59 Intake Total 850 480 Balance 850 480 Intake: Oral 850 480 Other: # Voids 3 2 # Bowel Movements 0 Active Medications: Current Medications Acetaminophen (Tylenol) 650 mg PO Q4HR PRN PRN Reason: Mild Pain / Temp above 100 Stop: 03/09/19 10:26 Al Hydrox/Mg Hydrox/Simethicone (Maalox) 30 ml PO Q4HR PRN PRN Reason: GI DISTRESS Stop: 03/09/19 10:26 Calcium/Vitamin D (Oscal W/Vitamin D) 1 tab PO DAILY [facility] Stop: 03/10/19 13:14 Last Admin: 01/13/19 08:38 Dose: 1 tab Donepezil HCl (Aricept) 5 mg PO DAILY [facility] Stop: 03/10/19 08:59 Last Admin: 01/13/19 08:38 Dose: 5 mg Lorazepam (Ativan) 0.5 mg PO Q6HR PRN; Protocol PRN Reason: Anxiety Stop: 03/09/19 13:46 Last Admin: 01/10/19 09:30 Dose: 0.5 mg Magnesium Hydroxide (Milk Of Magnesia) 30 ml PO HS PRN PRN Reason: Constipation Memantine (Namenda) 5 mg PO BID [facility] Stop: 03/10/19 08:59 Last Admin: 01/13/19 08:38 Dose: 5 mg Multivitamins/Vitamin C (Theragran) 1 tab PO DAILY [facility] Stop: 03/10/19 08:59 Last Admin: 01/13/19 08:38 Dose: 1 tab Risperidone (Risperdal) 0.25 mg PO BID [facility]; Protocol Stop: 03/10/19 08:59 Last Admin: 01/13/19 08:38 Dose: 0.25 mg Senna (Senna) 17.2 mg PO HS [facility] Stop: 03/10/19 20:59 Last Admin: 01/12/19 21:13 Dose: 17.2 mg Trazodone HCl (Desyrel) 50 mg PO HS [facility]; Protocol Stop: 03/09/19 20:59 Last Admin: 01/12/19 21:14 Dose: 50 mg Zolpidem Tartrate (Ambien) 5 mg PO HS PRN PRN Reason: Insomnia Stop: 03/09/19 10:26 Last Admin: 01/11/19 21:12 Dose: 5 mg General: alert HEENT: NC/AT, PERRLA Neck: Supple, No JVD Lungs: CTAB Cardiovascular: RRR, Normal S1, Normal S2, with murmur Abdomen: soft, non-tender, non-distended, positive bowel sound Extremities: excoriation Neurological: no change Internal Medicine Assmt/Plan - Assessment Assessment: ASSESSMENT AND PLAN: Dementia, renal insufficiency, right groin hernia. - Plan Plan: PLAN: We will refer the patient to Surgery for outpatient correction of inguinal hernia, currently not in pain. No sign of incarceration. We will monitor renal function. The patient was encouraged to increase fluid. Nutritional Asmnt/Malnutr-PDOC - Dietary Evaluation Malnutrition Findings (Please click <Entered> for more info): Nutritional Asmnt/Malnutrition Start: 01/13/19 09: 31 Text: Status: Complete Freq: Protocol: Document 01/13/19 09:31 SAE (Rec: 01/13/19 09:34 SAE [id number]) Nutritional Asmnt/Malnutrition Patient General Information Nutritional Screening Low Risk Diagnosis Psychosis Pertinent Medical Hx/Surgical Hx Dementia Subjective Information Pt is a 78-year-old male admitted on 01/08 d/t psychosis . Pt is currently eating an estimated 50% meals over the past 3 days. Pt typically eats between 25-50-75% meals, will continue to PO intake. HT: 511 WT: 160 LB (72.73 kg) BMI: 22.32 (Normal) GI: WNL, Soft, Non-tender BM: Not noted I/O: 1330/Not Noted Skin: WNL, intact Surjit: 21 Diet Order: Regular Estimated Energy Needs: ( Geriatric, CBW) 9120-6083 kcals (25-30 kcals/ kg) 72-87g Pro (1.0-1.2 g/kg) 2611-5142 ml (25-30 ml/kg) Pt is eating 50% of meals Per Meal/Nutrition Activity Record . Dietary is currently providing an estimated 2670 kcals and 120 gm Pro, per Pt PO intake this is providing an estimated 1335 kcals and 60gm Pro to meet 74% kcal and 83% Pro needs. Current Diet Order/ Nutrition Support Regular Pertinent Medications Maalox (PRN), Oscal with Vitamin D, MOM (PRN), Theragran, Senna Pertinent Labs No pertinent Labs Nutritional Hx/Data Height 1.8 m Height (Calculated Centimeters) 180.3 Current Weight (lbs) 72.575 kg Weight (Calculated Kilograms) 72.6 Weight (Calculated Grams) 50974.8 [place] Body Weight 172 LB (78.18 kg) % [place] Body Weight 93 Body Mass Index (BMI) 22.3 Weight Status Approriate GI Symptoms GI Symptoms None Last BM Not noted Skin Integrity/Comment: Skin: WNL, intact Surjit: 21 Current %PO Fair (50-74%) Estimated Nutritional Goals BEE in Kcals: Using Current wt Calories/Kcals/Kg 25-30 Kcals Calculated 6333-6512 Protein: Using Current wt Protein g/k.0-1.2 Protein Calculated 72-87 Fluid: ml 6863-2383 ml (25-30 ml/kg) Nutritional Problem No current Nutrition Prob Problem No nutrition diagnosis at this time. Etiology n/a Signs/Symptoms: n/a Malnutrition Related to Morbid Obesity Malnutrition related to morbid obesity No Intervention/Recommendation Comments Continue with Regular diet as ordered. Expected Outcomes/Goals Expected Outcomes/Goals 1. PO intake to meet 75% of nutritional needs. 2. Monitor PO intake, wt, nutrition related labs, and skin integrity. 3. F/U as low risk in 7 days, 01/20
--- NOTE | 2019-01-13 22:04 | Progress Notes ---
DATE: SUBJECTIVE: Chart reviewed and the patient interviewed. Also discussed the patient's condition with the staff and reviewed the records and labs. The patient is still confused and is still forgetful. The patient also is still actively hallucinating and still talking to himself and is unable to carry on coherent conversation. The patient also is still suspicious and is still paranoid. Otherwise, the patient is compliant with taking his medications with no side effects of medications. ASSESSMENT: The patient seems to be less agitated, but still psychotic and needs redirections. TREATMENT PLAN: Continue to monitor his behavior and condition closely. Also, continue adjusting psychotropic medications and followup. JOB# [id number]
--- NOTE | 2019-01-13 23:35 | Progress Notes ---
DATE: SUBJECTIVE: Chart reviewed and the patient interviewed. Also discussed the patient's condition with the staff and reviewed records and labs. The patient continued to be pleasantly confused and talking to me about having a surgery and that he is afraid that there is blood coming out. Also, is still asking the nurse if he can be her bankruptcy legal assistant or if she can assist him, but he could not elaborate on what he means by that. The patient also still has episodes of agitation and resisting care. Otherwise, the patient is compliant with taking his medications with no side effects of medications. ASSESSMENT: The patient is still confused and is still agitated. TREATMENT PLAN: We will monitor his behavior and ____ evaluate possibility of increasing Risperdal 2.5 mg twice a day. At the same time, we will continue close monitoring and continue to follow up. JOB# [id number]
[2019-01-14] MEDS: Multivitamin Tab PO SCH (08:25)
[2019-01-14] MEDS: Calcium Carb/Vit D 500 mg/200 U Tab PO SCH (08:25)
--- NOTE | 2019-01-14 12:19 | Internal Medicine Prog Note ---
Internal Medicine Subjective - Subjective Patient seen and examined:: with staff, chart reviewed Patient is:: awake, verbal, interactive, in bed Per staff patient has:: no adverse event, no episodes of fall, tolerating meds Internal Medicine Objective - Results Recent Labs: Laboratory Last Values Triglycerides 97 mg/dL (<150) 01/08/19 13:20 Cholesterol 165 mg/dL (<200) 01/08/19 13:20 LDL Cholesterol Direct 89 mg/dL (75-193) 01/08/19 13:20 HDL Cholesterol 55 mg/dL (23-92) 01/08/19 13:20 - Physical Exam Vitals and I&O: Vital Signs Temp 98 F 01/14/19 06:31 Pulse 90 01/14/19 06:31 Resp 18 01/14/19 08:00 BP 132/84 01/14/19 06:31 Pulse Ox 96 01/14/19 06:31 Intake & Output 01/13/19 01/14/19 01/14/19 18:59 06:59 18:59 Intake Total 480 120 Balance 480 120 Intake: Oral 480 120 Other: # Voids 2 3 # Bowel Movements 0 Active Medications: Current Medications Acetaminophen (Tylenol) 650 mg PO Q4HR PRN PRN Reason: Mild Pain / Temp above 100 Stop: 03/09/19 10:26 Al Hydrox/Mg Hydrox/Simethicone (Maalox) 30 ml PO Q4HR PRN PRN Reason: GI DISTRESS Stop: 03/09/19 10:26 Calcium/Vitamin D (Oscal W/Vitamin D) 1 tab PO DAILY [facility] Stop: 03/10/19 13:14 Last Admin: 01/14/19 08:25 Dose: 1 tab Donepezil HCl (Aricept) 5 mg PO DAILY [facility] Stop: 03/10/19 08:59 Last Admin: 01/14/19 08:25 Dose: 5 mg Lorazepam (Ativan) 0.5 mg PO Q6HR PRN; Protocol PRN Reason: Anxiety Stop: 03/09/19 13:46 Last Admin: 01/10/19 09:30 Dose: 0.5 mg Magnesium Hydroxide (Milk Of Magnesia) 30 ml PO HS PRN PRN Reason: Constipation Memantine (Namenda) 5 mg PO BID [facility] Stop: 03/10/19 08:59 Last Admin: 01/14/19 08:25 Dose: 5 mg Multivitamins/Vitamin C (Theragran) 1 tab PO DAILY [facility] Stop: 03/10/19 08:59 Last Admin: 01/14/19 08:25 Dose: 1 tab Risperidone (Risperdal) 0.25 mg PO BID [facility]; Protocol Stop: 03/10/19 08:59 Last Admin: 01/14/19 08:25 Dose: 0.25 mg Senna (Senna) 17.2 mg PO HS [facility] Stop: 03/10/19 20:59 Last Admin: 01/13/19 20:01 Dose: 17.2 mg Trazodone HCl (Desyrel) 50 mg PO HS [facility]; Protocol Stop: 03/09/19 20:59 Last Admin: 01/13/19 20:01 Dose: 50 mg Zolpidem Tartrate (Ambien) 5 mg PO HS PRN PRN Reason: Insomnia Stop: 03/09/19 10:26 Last Admin: 01/11/19 21:12 Dose: 5 mg General: alert HEENT: NC/AT, PERRLA Neck: Supple, No JVD Lungs: CTAB Cardiovascular: RRR, Normal S1, Normal S2, with murmur Abdomen: soft, non-tender, non-distended, positive bowel sound Extremities: excoriation Neurological: no change Internal Medicine Assmt/Plan - Assessment Assessment: ASSESSMENT AND PLAN: Dementia, renal insufficiency, right groin hernia. - Plan Plan: PLAN: We will refer the patient to Surgery for outpatient correction of inguinal hernia, currently not in pain. No sign of incarceration. We will monitor renal function. The patient was encouraged to increase fluid. Nutritional Asmnt/Malnutr-PDOC - Dietary Evaluation Malnutrition Findings (Please click <Entered> for more info): Nutritional Asmnt/Malnutrition Start: 01/13/19 09: 31 Text: Status: Complete Freq: Protocol: Document 01/13/19 09:31 SAE (Rec: 01/13/19 09:34 SAE [email or web address]) Nutritional Asmnt/Malnutrition Patient General Information Nutritional Screening Low Risk Diagnosis Psychosis Pertinent Medical Hx/Surgical Hx Dementia Subjective Information Pt is a 78-year-old male admitted on 01/08 d/t psychosis . Pt is currently eating an estimated 50% meals over the past 3 days. Pt typically eats between 25-50-75% meals, will continue to PO intake. HT: 511 WT: 160 LB (72.73 kg) BMI: 22.32 (Normal) GI: WNL, Soft, Non-tender BM: Not noted I/O: 1330/Not Noted Skin: WNL, intact Surjit: 21 Diet Order: Regular Estimated Energy Needs: ( Geriatric, CBW) 6877-0942 kcals (25-30 kcals/ kg) 72-87g Pro (1.0-1.2 g/kg) 4166-3134 ml (25-30 ml/kg) Pt is eating 50% of meals Per Meal/Nutrition Activity Record . Dietary is currently providing an estimated 2670 kcals and 120 gm Pro, per Pt PO intake this is providing an estimated 1335 kcals and 60gm Pro to meet 74% kcal and 83% Pro needs. Current Diet Order/ Nutrition Support Regular Pertinent Medications Maalox (PRN), Oscal with Vitamin D, MOM (PRN), Theragran, Senna Pertinent Labs No pertinent Labs Nutritional Hx/Data Height 1.8 m Height (Calculated Centimeters) 180.3 Current Weight (lbs) 72.575 kg Weight (Calculated Kilograms) 72.6 Weight (Calculated Grams) 00204.8 [place] Body Weight 172 LB (78.18 kg) % [place] Body Weight 93 Body Mass Index (BMI) 22.3 Weight Status Approriate GI Symptoms GI Symptoms None Last BM Not noted Skin Integrity/Comment: Skin: WNL, intact Surjit: 21 Current %PO Fair (50-74%) Estimated Nutritional Goals BEE in Kcals: Using Current wt Calories/Kcals/Kg 25-30 Kcals Calculated 5366-1737 Protein: Using Current wt Protein g/k.0-1.2 Protein Calculated 72-87 Fluid: ml 2807-4833 ml (25-30 ml/kg) Nutritional Problem No current Nutrition Prob Problem No nutrition diagnosis at this time. Etiology n/a Signs/Symptoms: n/a Malnutrition Related to Morbid Obesity Malnutrition related to morbid obesity No Intervention/Recommendation Comments Continue with Regular diet as ordered. Expected Outcomes/Goals Expected Outcomes/Goals 1. PO intake to meet 75% of nutritional needs. 2. Monitor PO intake, wt, nutrition related labs, and skin integrity. 3. F/U as low risk in 7 days, 01/20
--- NOTE | 2019-01-14 21:25 | Progress Notes ---
DATE: 01/14/2019 SUBJECTIVE: A 78-year-old male transferred from [facility]. History of scrotal hernia. The patient is noting he is here because of "problems at home," stating that his mom and dad are waiting for him, that his dad has made "a deal with the railroad," noting that his dad has some idea of televising the ocean to people's bedrooms. The patient is following me around, pretty intrusive, rambling, confused appearing. He has no idea where he is or why he is here, mumbling to self. ASSESSMENT: The patient grandiose, delusional, talking nonsense. PLAN: I will continue to monitor. Continue dosing of Aricept, respirdal. JOB# [id number]
--- NOTE | 2019-01-15 06:35 | Discharge Summary ---
DATE OF DISCHARGE: 01/15/2019 PATIENT'S AGE: 78. SEX: Male. PHYSICIAN: Dr. Hernandez. FINAL DIAGNOSES: PRIMARY DIAGNOSIS: Unspecified psychosis. SECONDARY DIAGNOSIS: Dementia, moderate to severe, with psychotic features. REASON FOR HOSPITALIZATION: The patient was admitted to the hospital because of increased agitation and irritability and the patient was not able to follow directions and was considered to be gravely disabled. The patient also was delusional and he thought that his neighbor was trying to hurt him. HOSPITAL COURSE: The patient continued to be anxious and confused. The patient also was restless. The patient was given Risperdal in a dose of 0.25 mg twice a day. Also, because of insomnia, he was given trazodone 50 mg at bedtime. Gradually, the patient's affect was brighter. The patient was calmer. The patient was not suicidal or homicidal, and the patient was discharged from the hospital. Physical exam of the patient showed that the patient has hernia and that he has right groin hernia. AFTER DISCHARGE PLANS: The patient discharged from the hospital and the patient went to [facility] with plan to follow him up there. The patient discharged from the hospital with plans to follow up in [facility]. EXPECTED OUTCOME AFTER DISCHARGE: Fair if the patient continued to take his psychotropic medications and follow up with discharge plans. [facility]# [id number]
[2019-01-15] MEDS: Calcium Carb/Vit D 500 mg/200 U Tab PO SCH (08:35)
[2019-01-15] MEDS: Multivitamin Tab PO SCH (08:35)
--- NOTE | 2019-01-15 12:25 | Internal Medicine Prog Note ---
Internal Medicine Subjective - Subjective Patient seen and examined:: with staff, chart reviewed Patient is:: awake, verbal, interactive, in bed Per staff patient has:: no adverse event, no episodes of fall, tolerating meds Internal Medicine Objective - Results Recent Labs: Laboratory Last Values POC Glucose 90 MG/DL (70 - 105) 01/15/19 11:40 Triglycerides 97 mg/dL (<150) 01/08/19 13:20 Cholesterol 165 mg/dL (<200) 01/08/19 13:20 LDL Cholesterol Direct 89 mg/dL (75-193) 01/08/19 13:20 HDL Cholesterol 55 mg/dL (23-92) 01/08/19 13:20 - Physical Exam Vitals and I&O: Vital Signs Temp 98.3 F 01/15/19 06:37 Pulse 84 01/15/19 06:37 Resp 20 01/15/19 06:37 BP 118/67 01/15/19 06:37 Pulse Ox 96 01/15/19 06:37 Intake & Output 01/14/19 01/15/19 01/15/19 18:59 06:59 18:59 Intake Total 1200 120 Balance 1200 120 Intake: Oral 1200 120 Other: # Voids 3 # Bowel Movements 1 Stool Characteristics Soft Active Medications: Current Medications Acetaminophen (Tylenol) 650 mg PO Q4HR PRN PRN Reason: Mild Pain / Temp above 100 Stop: 03/09/19 10:26 Al Hydrox/Mg Hydrox/Simethicone (Maalox) 30 ml PO Q4HR PRN PRN Reason: GI DISTRESS Stop: 03/09/19 10:26 Calcium/Vitamin D (Oscal W/Vitamin D) 1 tab PO DAILY [facility] Stop: 03/10/19 13:14 Last Admin: 01/15/19 08:35 Dose: 1 tab Donepezil HCl (Aricept) 5 mg PO DAILY [facility] Stop: 03/10/19 08:59 Last Admin: 01/15/19 08:35 Dose: 5 mg Lorazepam (Ativan) 0.5 mg PO Q6HR PRN; Protocol PRN Reason: Anxiety Stop: 03/09/19 13:46 Last Admin: 01/10/19 09:30 Dose: 0.5 mg Magnesium Hydroxide (Milk Of Magnesia) 30 ml PO HS PRN PRN Reason: Constipation Memantine (Namenda) 5 mg PO BID [facility] Stop: 03/10/19 08:59 Last Admin: 01/15/19 08:35 Dose: 5 mg Multivitamins/Vitamin C (Theragran) 1 tab PO DAILY [facility] Stop: 03/10/19 08:59 Last Admin: 01/15/19 08:35 Dose: 1 tab Risperidone (Risperdal) 0.25 mg PO BID [facility]; Protocol Stop: 03/10/19 08:59 Last Admin: 01/15/19 08:35 Dose: 0.25 mg Senna (Senna) 17.2 mg PO HS [facility] Stop: 03/10/19 20:59 Last Admin: 01/14/19 20:46 Dose: 17.2 mg Trazodone HCl (Desyrel) 50 mg PO HS [facility]; Protocol Stop: 03/09/19 20:59 Last Admin: 01/14/19 20:46 Dose: 50 mg Zolpidem Tartrate (Ambien) 5 mg PO HS PRN PRN Reason: Insomnia Stop: 03/09/19 10:26 Last Admin: 01/11/19 21:12 Dose: 5 mg General: alert HEENT: NC/AT, PERRLA Neck: Supple, No JVD Lungs: CTAB Cardiovascular: RRR, Normal S1, Normal S2, with murmur Abdomen: soft, non-tender, non-distended, positive bowel sound Extremities: excoriation Neurological: no change Internal Medicine Assmt/Plan - Assessment Assessment: ASSESSMENT AND PLAN: Dementia, renal insufficiency, right groin hernia. - Plan Plan: PLAN: We will refer the patient to Surgery for outpatient correction of inguinal hernia, currently not in pain. No sign of incarceration. We will monitor renal function. The patient was encouraged to increase fluid. Nutritional Asmnt/Malnutr-PDOC - Dietary Evaluation Malnutrition Findings (Please click <Entered> for more info): Nutritional Asmnt/Malnutrition Start: 01/13/19 09: 31 Text: Status: Complete Freq: Protocol: Document 01/13/19 09:31 SAE (Rec: 01/13/19 09:34 SAE [id number]) Nutritional Asmnt/Malnutrition Patient General Information Nutritional Screening Low Risk Diagnosis Psychosis Pertinent Medical Hx/Surgical Hx Dementia Subjective Information Pt is a 78-year-old male admitted on 01/08 d/t psychosis . Pt is currently eating an estimated 50% meals over the past 3 days. Pt typically eats between 25-50-75% meals, will continue to PO intake. HT: 511 WT: 160 LB (72.73 kg) BMI: 22.32 (Normal) GI: WNL, Soft, Non-tender BM: Not noted I/O: 1330/Not Noted Skin: WNL, intact Surjit: 21 Diet Order: Regular Estimated Energy Needs: ( Geriatric, CBW) 7499-9262 kcals (25-30 kcals/ kg) 72-87g Pro (1.0-1.2 g/kg) 7916-4534 ml (25-30 ml/kg) Pt is eating 50% of meals Per Meal/Nutrition Activity Record . Dietary is currently providing an estimated 2670 kcals and 120 gm Pro, per Pt PO intake this is providing an estimated 1335 kcals and 60gm Pro to meet 74% kcal and 83% Pro needs. Current Diet Order/ Nutrition Support Regular Pertinent Medications Maalox (PRN), Oscal with Vitamin D, MOM (PRN), Theragran, Senna Pertinent Labs No pertinent Labs Nutritional Hx/Data Height 1.8 m Height (Calculated Centimeters) 180.3 Current Weight (lbs) 72.575 kg Weight (Calculated Kilograms) 72.6 Weight (Calculated Grams) 36009.8 [place] Body Weight 172 LB (78.18 kg) % [place] Body Weight 93 Body Mass Index (BMI) 22.3 Weight Status Approriate GI Symptoms GI Symptoms None Last BM Not noted Skin Integrity/Comment: Skin: WNL, intact Surjit: 21 Current %PO Fair (50-74%) Estimated Nutritional Goals BEE in Kcals: Using Current wt Calories/Kcals/Kg 25-30 Kcals Calculated 0385-9746 Protein: Using Current wt Protein g/k.0-1.2 Protein Calculated 72-87 Fluid: ml 3165-6828 ml (25-30 ml/kg) Nutritional Problem No current Nutrition Prob Problem No nutrition diagnosis at this time. Etiology n/a Signs/Symptoms: n/a Malnutrition Related to Morbid Obesity Malnutrition related to morbid obesity No Intervention/Recommendation Comments Continue with Regular diet as ordered. Expected Outcomes/Goals Expected Outcomes/Goals 1. PO intake to meet 75% of nutritional needs. 2. Monitor PO intake, wt, nutrition related labs, and skin integrity. 3. F/U as low risk in 7 days, 01/20
--- NOTE | 2019-01-16 07:39 | Progress Notes ---
DATE: SUBJECTIVE: Chart reviewed and the patient interviewed. Also discussed the patient's condition with the staff and reviewed records and labs. The patient is pleasantly confused. Also, still has labile affect and sometimes laughing, sometimes crying. The patient also is still cooperative with the staff, but still has episodes of irritability and anger. He denies any intention to harm himself or others. ASSESSMENT: The patient seems to be confused, but pleasant. TREATMENT PLAN: Continue to monitor behavior and condition closely. Also, continue adjusting psychotropic medications and work on behavioral modification. Also, the patient to continue on his current medications including Risperdal 0.25 mg twice a day and continue to follow up. Also we will increase Aricept to 10 mg every day. [facility]# [id number]
[2019-01-16] MEDS: Multivitamin Tab PO SCH (08:43)
[2019-01-16] MEDS: Calcium Carb/Vit D 500 mg/200 U Tab PO SCH (08:43)
--- NOTE | 2019-01-16 12:16 | Internal Medicine Prog Note ---
Internal Medicine Subjective - Subjective Patient seen and examined:: with staff, chart reviewed, other (late entry, seen at 11am) Patient is:: awake, verbal, interactive, in bed Per staff patient has:: no adverse event, no episodes of fall, tolerating meds Internal Medicine Objective - Results Recent Labs: Laboratory Last Values POC Glucose 90 MG/DL (70 - 105) 01/15/19 11:40 Triglycerides 97 mg/dL (<150) 01/08/19 13:20 Cholesterol 165 mg/dL (<200) 01/08/19 13:20 LDL Cholesterol Direct 89 mg/dL (75-193) 01/08/19 13:20 HDL Cholesterol 55 mg/dL (23-92) 01/08/19 13:20 - Physical Exam Vitals and I&O: Vital Signs Temp 97.4 F 01/15/19 14:00 Pulse 89 01/15/19 14:00 Resp 20 01/15/19 14:00 BP 122/77 01/15/19 14:00 Pulse Ox 96 01/15/19 14:00 Intake & Output 01/15/19 01/16/19 01/16/19 18:59 06:59 18:59 Intake Total 1000 Balance 1000 Intake: Oral 1000 Other: # Voids 4 # Bowel Movements 1 Stool Characteristics Soft Soft General: alert HEENT: NC/AT, PERRLA Neck: Supple, No JVD Lungs: CTAB Cardiovascular: RRR, Normal S1, Normal S2, with murmur Abdomen: soft, non-tender, non-distended, positive bowel sound Extremities: excoriation Neurological: no change Internal Medicine Assmt/Plan - Assessment Assessment: ASSESSMENT AND PLAN: Dementia, renal insufficiency, right groin hernia. - Plan Plan: PLAN: We will refer the patient to Surgery for outpatient correction of inguinal hernia, currently not in pain. No sign of incarceration. We will monitor renal function. The patient was encouraged to increase fluid. Nutritional Asmnt/Malnutr-PDOC - Dietary Evaluation Malnutrition Findings (Please click <Entered> for more info): Nutritional Asmnt/Malnutrition Start: 01/13/19 09: 31 Text: Status: Complete Freq: Protocol: Document 01/13/19 09:31 SAE (Rec: 01/13/19 09:34 SAE [id number]) Nutritional Asmnt/Malnutrition Patient General Information Nutritional Screening Low Risk Diagnosis Psychosis Pertinent Medical Hx/Surgical Hx Dementia Subjective Information Pt is a 78-year-old male admitted on 01/08 d/t psychosis . Pt is currently eating an estimated 50% meals over the past 3 days. Pt typically eats between 25-50-75% meals, will continue to PO intake. HT: 511 WT: 160 LB (72.73 kg) BMI: 22.32 (Normal) GI: WNL, Soft, Non-tender BM: Not noted I/O: 1330/Not Noted Skin: WNL, intact Surjit: 21 Diet Order: Regular Estimated Energy Needs: ( Geriatric, CBW) 3729-5654 kcals (25-30 kcals/ kg) 72-87g Pro (1.0-1.2 g/kg) 2637-6738 ml (25-30 ml/kg) Pt is eating 50% of meals Per Meal/Nutrition Activity Record . Dietary is currently providing an estimated 2670 kcals and 120 gm Pro, per Pt PO intake this is providing an estimated 1335 kcals and 60gm Pro to meet 74% kcal and 83% Pro needs. Current Diet Order/ Nutrition Support Regular Pertinent Medications Maalox (PRN), Oscal with Vitamin D, MOM (PRN), Theragran, Senna Pertinent Labs No pertinent Labs Nutritional Hx/Data Height 1.8 m Height (Calculated Centimeters) 180.3 Current Weight (lbs) 72.575 kg Weight (Calculated Kilograms) 72.6 Weight (Calculated Grams) 19176.8 [place] Body Weight 172 LB (78.18 kg) % [place] Body Weight 93 Body Mass Index (BMI) 22.3 Weight Status Approriate GI Symptoms GI Symptoms None Last BM Not noted Skin Integrity/Comment: Skin: WNL, intact Surjit: 21 Current %PO Fair (50-74%) Estimated Nutritional Goals BEE in Kcals: Using Current wt Calories/Kcals/Kg 25-30 Kcals Calculated 6506-0161 Protein: Using Current wt Protein g/k.0-1.2 Protein Calculated 72-87 Fluid: ml 0997-1528 ml (25-30 ml/kg) Nutritional Problem No current Nutrition Prob Problem No nutrition diagnosis at this time. Etiology n/a Signs/Symptoms: n/a Malnutrition Related to Morbid Obesity Malnutrition related to morbid obesity No Intervention/Recommendation Comments Continue with Regular diet as ordered. Expected Outcomes/Goals Expected Outcomes/Goals 1. PO intake to meet 75% of nutritional needs. 2. Monitor PO intake, wt, nutrition related labs, and skin integrity. 3. F/U as low risk in 7 days, 01/20
== END 2019-01-16 11:30 | DRG 885 ==
LOC: GERO2 09:45 → GERO 16:48
PROVIDERS: ADMIT Psychiatry & Neurology Psychiatry; ATTEND Psychiatry & Neurology Psychiatry
DX: F29 Unspecified psychosis not due to a substance or known physiological condition (principal); F03.91 Unspecified dementia, unspecified severity, with behavioral disturbance; I10 Essential (primary) hypertension; N28.9 Disorder of kidney and ureter, unspecified; K40.90 Unilateral inguinal hernia, without obstruction or gangrene, not specified as recurrent; Z79.899 Other long term (current) drug therapy
CPT/HCPCS: 36415-UA; 80061-TC; 82948-90; 83036-90; G0410; Z7610